=== PATIENT | male | born 1985 | race Caucasian/White ===

== ENCOUNTER 2023-09-09 11:43 | Emergency (ER) | payer OTHER, SELFPAY ==
[2023-09-09 11:59] VITALS: BP 127/87; PULSE 93; RESP 16; TEMP 36.8; O2SAT 98
--- NOTE | 2023-09-09 13:08 | ED.EAR ---
HPI - Ear Problem General Chief complaint: Ear Stated complaint: Ears Irritation Time Seen by Provider: 09/09/23 13:08 Source: patient Mode of arrival: ambulatory Limitations: no limitations History of Present Illness HPI Narrative: 37-year-old male presents with complaint of nasal congestion or postnasal drainage, coughing, sore throat, bilateral ear pain for 5 days. Pain to left ear worse. Not taking any ulaf-qhe-hftbgny medications to treat his symptoms. Afebrile. All Systems reviewed and negative except as noted above. 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 reports fatigue. EYES: Denies visual changes, redness, or discharge. ENT: Reports rhinorrhea, congestion, sore throat, bilateral otalgia. CARDIOVASCULAR: Denies chest pain, palpitations, or edema. RESPIRATORY: reports cough. Denies dyspnea. GASTROINTESTINAL: Denies abdominal pain, nausea, vomiting, or diarrhea. GENITOURINARY: Denies dysuria or hematuria. SKIN: Denies rash or itching. MUSCULOSKELETAL: Denies back pain, joint pain, or myalgia. NEUROLOGIC: Denies headache, numbness, or weakness. PSYCHIATRIC: Denies anxiety or depression. All other systems reviewed are negative, except as documented in HPI. PMFSH Comments At time of signature, agree with nursing past medical, surgical, social and family history. There is no relevant family history pertinent to the presenting complaint. Exam Narrative: GENERAL: This is a well-nourished, well-developed patient, in no apparent distress. HEAD: normocephalic, atraumatic. EYES: PERRL. Sclera clear/white. Vision is grossly intact. EARS: External ears normal, auditory canals clear and without drainage, left TM erythematous and retracted. fluid to right TM without perforation bilaterally. Hearing grossly intact. NOSE: External nose normal with mild congestion, erythema and swelling to bilateral nares. THROAT: Mucous membranes moist, Erythema postnasal drainage NECK: Neck supple, non-tender without lymphadenopathy, masses or thyromegaly. CARDIOVASCULAR: Regular rate and rhythm without murmurs, gallops, or rubs. RESPIRATORY: Clear to auscultation. Breath sounds equal bilaterally. No wheezes, rales, or rhonchi. SKIN: warm, Dry, intact with no suspicious lesions or rash, good texture and turgor. NEURO: awake, alert, and oriented to person, place and time. There were no obvious focal neurologic abnormalities. EXTREMITIES: No joint tenderness, effusion, or edema noted. Course Course Level of Care: Express Care Visit Vital Signs Vital signs: Vital Signs Temperature 36.8 C 09/09/23 11:59 Pulse Rate 93 09/09/23 11:59 Respiratory Rate 16 09/09/23 11:59 Blood Pressure 127/87 09/09/23 11:59 Pulse Oximetry 98 09/09/23 11:59 Oxygen Delivery Room Air 09/09/23 11:59 Temperature 36.8 C 09/09/23 11:59 Pulse Rate 93 09/09/23 11:59 Respiratory Rate 16 09/09/23 11:59 Blood Pressure 127/87 09/09/23 11:59 Pulse Oximetry 98 09/09/23 11:59 Oxygen Delivery Room Air 09/09/23 11:59 reviewed Medical Decision Making MDM Narrative Medical decision making narrative: Patient is aware of diagnosis, understands and agrees to treatment plan. Anticipatory guidance given. Patient agrees to follow-up as directed and is aware of reasons to seek care at the emergency department. Portions of this record may have been created with voice recognition software Vital Signs Vital Signs: Vital Signs Temperature 36.8 C 09/09/23 11:59 Pulse Rate 93 09/09/23 11:59 Respirat
== END 2023-09-09 13:20 | disposition home or self-care (01) ==
PROVIDERS: Emergency Provider Nurse Practitioner Family
DX: J01.90 Acute sinusitis, unspecified (principal); H66.92 Otitis media, unspecified, left ear; H65.01 Acute serous otitis media, right ear
CPT/HCPCS: 99203; G0463

== ENCOUNTER 2024-08-20 18:49 | Inpatient (IN) | payer OTHER, SELFPAY ==
[2024-08-20] VITALS (8 sets, daily range): BP systolic 110–135; BP diastolic 77–99; PULSE 92–112; RESP 13–17; TEMP 36.4–36.8; O2SAT 96–100
--- NOTE | ~2024-08-20 | CT_ITS ---
History: Seizure-like activity PROCEDURE: CT head without contrast. COMPARISON: None TECHNIQUE: Axial imaging of the head performed from the skull base to the vertex without IV contrast. Sagittal a nd coronal reformations obtained. DLP: 605 mGy-cm FINDINGS: The ventricles are normal in size, shape and position. There is no mass, mass effect or midline shift. There is no abnormal extra-axial fluid collection or intracranial hemorrhage. Air-fluid level within the right maxillary sinus. Remaining paranasal sinuses are clear. The mastoid air cells are well aerated. No acute displaced fractures within the overlying cranium. Impression: No acute intracranial hemorrhage or suspicious mass effect. Inflammatory sinus disease Reviewed, dictated and finalized at location A. Impression: No acute intracranial hemorrhage or suspicious mass effect. Inflammatory sinus disease
--- NOTE | ~2024-08-20 | CT_ITS ---
EXAMINATION: CTA abdomen pelvis DATE: 08/20/2024 20:35 CDT INDICATION: TECHNIQUE: Computed tomographic angiography (CTA) of the abdomen and pelvis with 100 mL Omnipaque-350 intravenous contrast. The dose-length product was 527.77 mGy-cm. Maximum intensity projection 3D-rec onstructions of the aorta and other arteries were constructed by the technologist on a separate works tation. FINDINGS/OBSERVATIONS: LOWER CHEST: The bilateral lung bases are clear. Small hiatal hernia is noted. LIVER: The liver enhances homogeneously and is enlarged measuring 20 cm in longitudinal dimension. GALLBLADDER AND BILIARY SYSTEM: The gallbladder is only minimally distended, and otherwise unremarkable. PANCREAS: The pancreas enhances homogeneously without ductal dilatation. SPLEEN: The spleen enhances homogeneously and is not enlarged. KIDNEYS: The bilateral kidneys enhance symmetrically without hydronephrosis or renal calculi. ADRENAL GLANDS: Unremarkable. GASTROINTESTINAL TRACT: Colonic diverticulosis without surrounding inflammatory change. APPENDIX: The air-filled appendix is of normal caliber (axial series, images 121 through 141). VASCULATURE: Unremarkable. No aneurysmal dilatation or significant stenosis. LYMPH NODES: No pathologically enlarged or morphologically suspicious lymph nodes within the retroperitoneum or at the root of the mesentery. PELVIC STRUCTURES: The bladder is only minimally distended, and otherwise unremarkable. The prostate gland is not enlarged. BODY WALL AND MUSCULOSKELETAL: No significant degenerative disease within the lower thoracic or lumbosacral spine. IMPRESSION: Hepatomegaly. Otherwise, unremarkable CTA examination of the abdomen and pelvis, as detailed above. Reviewed, dictated and finalized at location A.
--- OUTSIDE RECORDS SUMMARY | 2024-08-20 18:52 | XMS_ITS | Encounter Summary ---
Author Organization [facility] Address [address] [place] [address] Care Team Providers Care Service Manager Name Role Phone Unavailable Primary Care Provider Unavailabl e Encounter Details Date Type Department Care Team (Late st Contact Info) Description 10/29/1999 Outpatient Historical [facility] Pediatrics [address] [place] [id number] Ashkan Soria Social History Tobacco Use Types Packs/Day Years Used Date Smoking Tobacco: Never Assessed Sex and Gender Information Value Date Recorded Sex Assigned at Not on file Legal Sex Male 3:41 AM [employer]ER[employer] Gender Identity Not on file Sexual Orientation Not on file documented as of this encounter Plan of Treatment Not on file documented as of this encounter Visit Diagnoses Not on filedocumented in this encounter
--- OUTSIDE RECORDS SUMMARY | 2024-08-20 18:52 | XMS_ITS | Clinical Summary ---
Author Organization [facility] Address [address] [place] [address] Care Team Providers Care Blueprint Reader Name Role Phone Unavailable Primary Care Provider Unavailabl e Allergies Active Allergy Reactions Criticality Noted Date Comments Bee Venom Protein (Honey Bee) Anaphylaxis High 08/15 Medications EPINEPHrine (EPIPEN) 0.3 mg/0.3 mL Auto-Injector Inject 0.3 mg by intramuscular injection 1 time daily as needed for Anaphylaxis. Active Encounters Date Type Department Care Team Description 08/15/2024 9:14 AM CDT - 08/15/2024 11:15 AM CDT Emergency [facility] Emergency Department [address] [place] [address] Braulio Mckeon DO Allergic reaction, initial encounter (Primary Dx) Discharge Disposition: Home or Self Care 08/15/2024 Travel 08/01/2024 External Device Data [facility] ABSTRACTION Provider, Abstract 08/01/2024 External Device Data [facility] ABSTRACTION Provider, Abstract 07/31/2024 External Device Data [facility] ABSTRACTION Provider, Abstract 07/28/2024 8:15 AM CDT Ancillary Procedure [facility] [address] [place] [address] Annia Griffin, SALLY Dorsalgia, unspecified from Last 3 Months Social History Tobacco Use Types Packs/Day Years Used Date Smoking Tobacco: Some Days Cigarettes Smokeless Tobacco: Never Tobacco Cessation:Ready to Q uit: Not Asked; Counseling Given: Not Answered Alcohol Use Standard Drinks/Week Comments Yes 0 (1 standard drink = 0.6 oz pur e alcohol) Social Feeling Safe Answer Date Recorded Are you in a relationship wi th someone who hurts you emotionally and/or physically? No 08/15/2024 Sex and Gender Information Value Date Recorded Sex Assigned at Not on file Legal Sex Male 3:41 AM [employer] Gender Identity Not on file Sexual Orientation Not on file Last Filed Vital Signs Vital Sign Reading Time Taken Comments Blood Pressure 132/75 08/15/2024 10:20 AM CDT Pulse 72 08/15/2024 10:20 AM CDT Temperature 36.5 C (97.7 F) 08/15/2024 9:11 AM CDT Respiratory Rate 14 08/15/2024 10:20 AM CDT Oxygen Saturation 98% 08/15/2024 10:20 AM CDT Inhaled Oxygen Concentration - - Weight 73.5 kg (162 lb) 08/15/2024 9:45 AM CDT Height 167.6 cm (5' 6 ) 08/15/2024 9:45 AM CDT Body Mass Index 26.15 08/15/2024 9:45 AM CDT Plan of Treatment Health Maintenance Due Date Last Done Comments Pre-Diabetes and Diabetes Screening 1984 DTAP/TDAP/TD VACCINES (1 - Tdap) 09/26/2003 HEPATITIS B VACCINES (1 of 3 - 19+ 3-dose series) 09/26/2003 INFLUENZA VACCINE (#1) 2023 HPV VACCINES Aged Out No longer eligi ble based on patient's age to complete this topic Procedures Procedure Name Priority Date/Time Associated Diagnosis Comments MRI LUMBAR WO CONTRAST Routine 07/28/2024 8:54 AM CDT Dorsalgia, unspecified from Last 3 Months Results * MRI LUMBAR WO CONTRAST (07/28/2024 8:54 AM CDT) Anatomical Region Laterality Modality Spine Magnetic Resonan ce 07/28/2024 8:54 AM CDT Impressions 07/28/2024 9:13 AM CDT IMPRESSION: There are significant abnormalities with regard to the lumbar spine. The levels of greatest abnormality are L2/3 and L4/5. Please see body of report for complete detail with regard to the significant abnormalities. Narrative 07/28/2024 9:13 AM CDT EXAM: MRI LUMBAR WO CONTRAST DATE: 07/28/2024 8:59 AM HISTORY: Dorsalgia, unspecified TECHNIQUE: Multiplanar, multisequencing images of the lumbar spine were performed without contrast. COMPARISON: None. FINDINGS: There is no marrow edema. The abdominal aorta is normal in caliber. The distal cord terminates at L1. L1/2: Unremarkable. L2/3: This is a level of pertinent abnormality. At this level, there is mild broad-based disc bulging but there is also a midline disc extrusion. Migrating superiorly from the disc level behind the right paracentral L2 vertebral body, there is a large low T2 weighted signal masslike area which is most consistent either with extruded disc material or sequestered disc material. This abnormality measures 1.4 x 0.8 cm in greatest dimension. This abnormality generates severe mass effect upon the right L2 nerve root and upon the right lateral thecal sac. At the disc level, there is moderate central stenosis. At the disc level, the neural foramen are patent. L3/4: Mild bilateral facet arthropathy is present with mild ligamentum flavum hypertrophy and mild broad-based disc bulging. There is no central stenosis. There is mild bilateral foraminal narrowing, left more than right. L4/5: Moderate bilateral facet arthropathy and ligamentum flavum hypertrophy is present. There is moderate circumferential disc bulging but there is also a midline to right paracentral disc protrusion which impresses upon the midline to right paracentral ventral thecal sac in the region of the right L5 nerve root as it prepares to arise from the thecal sac. There is also mild mass effect upon the budding left L5 nerve root secondary to facet arthropathy and circumferential disc bulging. There is overall mild central stenosis as well. Disc bulging mildly narrows the left and moderately narrows the right foramen. L5/S1: Mild bilateral facet arthropathy and mild broad-based disc bulging is present without central stenosis, lateral recess narrowing or foraminal stenosis. Procedure Note Cristal Woods MD - 07/28/2024 EXAM: MRI LUMBAR WO CONTRAST DATE: 07/28/2024 8:59 AM HISTORY: Dorsalgia, unspecified TECHNIQUE: Multiplanar, multisequencing images of the lumbar spine were performed without contrast. COMPARISON: None. FINDINGS: There is no marrow edema. The abdominal aorta is normal in caliber. The distal cord terminates at L1. L1/2: Unremarkable. L2/3: This is a level of pertinent abnormality. At this level, there is mild broad-based disc bulging but there is also a midline disc extrusion. Migrating superiorly from the disc level behind the right paracentral L2 vertebral body, there is a large low T2 weighted signal masslike area which is most consistent either with extruded disc material or sequestered disc material. This abnormality measures 1.4 x 0.8 cm in greatest dimension. This abnormality generates severe mass effect upon the right L2 nerve root and upon the right lateral thecal sac. At the disc level, there is moderate central stenosis. At the disc level, the neural foramen are patent. L3/4: Mild bilateral facet arthropathy is present with mild ligamentum flavum hypertrophy and mild broad-based disc bulging. There is no central stenosis. There is mild bilateral foraminal narrowing, left more than right. L4/5: Moderate bilateral facet arthropathy and ligamentum flavum hypertrophy is present. There is moderate circumferential disc bulging but there is also a midline to right paracentral disc protrusion which impresses upon the midline to right paracentral ventral thecal sac in the region of the right L5 nerve root as it prepares to arise from the thecal sac. There is also mild mass effect upon the budding left L5 nerve root secondary to facet arthropathy and circumferential disc bulging. There is overall mild central stenosis as well. Disc bulging mildly narrows the left and moderately narrows the right foramen. L5/S1: Mild bilateral facet arthropathy and mild broad-based disc bulging is present without central stenosis, lateral recess narrowing or foraminal stenosis. IMPRESSION: There are significant abnormalities with regard to the lumbar spine. The levels of greatest abnormality are L2/3 and L4/5. Please see body of report for complete detail with regard to the significant abnormalities. Annia Griffin [facility] MR ORDERABLES Final Result from Last 3 Months Insurance [facility] [employer] COMP
--- OUTSIDE RECORDS SUMMARY | 2024-08-20 18:52 | XMS_ITS | Encounter Summary ---
Author Organization [facility] Address [address] [place] [address] Care Team Providers Care Social Work Assistant Name Role Phone Unavailable Primary Care Provider Unavailabl e Encounter Details Date Type Department Care Team (Late st Contact Info) Description 01/22/2000 Outpatient Historical [facility] Pediatrics [address] [place] [address] Curly Lind MD [address] [facility] [address] [place] [address] Social History Tobacco Use Types Packs/Day Years Used Date Smoking Tobacco: Never Assessed Sex and Gender Information Value Date Recorded Sex Assigned at Not on file 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
--- OUTSIDE RECORDS SUMMARY | 2024-08-20 18:52 | XMS_ITS | Data Portability ---
Author Organization [facility], Main Office Address [address] [place] [address] Assessment Encounter Date Assessment Date Assessment LastModified by Organization Details LastModified Time 01/25/2024 01/25/2024 38-year-old patient presents today with right elbow pain that has been going on for 20 years but has recently gotten worse last month. He states that W the pain is typically off and on, but it has been constant for the last few weeks. He denies any injury. 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 He is right-handed. For treatment he has tried diclofenac gel, which helps, Advil as needed, which does not help. He states that he can not fully extend or flex the elbow, this has been going on for a long time. Review of systems per patient questionnaire Imaging: X-rays reviewed of the right elbow show no acute bony abnormality or fracture. He does have moderate degenerative osteoarthritic changes and joint space narrowing within the joint. physical exam: Pain with palpitation around medial and lateral epicondyle. Pain with resisted wrist extension. Range of motion of motion 20-120. No issues with supination/pronat ion. Sensation intact. We will order physical therapy to work on his range of motion, limited by arthritis. It is likely that he is also experiencing lateral and medial epicondylitis. We will order meloxicam for anti-inflammatory therapy. He can continue to use diclofenac gel as needed. We will see him back after therapy if he is still experiencing issues. [email or web address] Not available 01/25/2024 16:25:00 Plan of Treatment Reminders Order Date Submit Date Provider Last Modified By Organization Details Last Modified Time Details Appointments None recorded. Lab None recorded. Referral physical therapist referral - patient to schedule 2023 024 [email or web address] Not available 16:25:00 Procedures None recorded. Surgeries None recorded. Imaging XR, elbow 2023 024 [email or web address] [facility], [address], [place], [address], 16:25:00 Medication Orders Mobic 15 mg tablet 2023 024 [email or web address] [facility], [address] [facility], [place], [place], [phone], 16:25:00 Patient TargetsNo targets recorded. Patient InstructionsNo instructions recorded. Reason for Referral Physical Therapist Referral for Pain of right elbow joint patient to schedule Referring Physician: Elinor Medrano, Orthopedic Surgery, Encounter Date: 01/25/2024 Results Created Date Observation Date Name Description Value Unit Range Abnormal Flag Note LastModifiedBy Organization Detail LastModifiedTime 01/25/20 24 XR, elbow No observ ation record ed. [email or web address] [facility] [address], [address], 01/25/2024 16:14:04 Result Notes None recorded. Problems Name Problem SNOMED Code Status Onset Date Resolution Date Notes Provider Name and Address Organization Details Recorded Time Pain of right elbow joint [id number] Active 2023 ABDI Beaver [employer] 15:08:24 Problem Notes None recorded. Procedures Surgical History Date Name Laterality Status Provider Name and Address Organization Details Recorded Time open reduction of fracture of femur completed Phyllis Christopher CNA [employer] 01/25/2024 15:07:55 Imaging Results Imaging Date Name Status LastModified by Organiz ation Details LastModified Time 01/25/2024 XR, elbow completed [email or web address] [facility] [address], [address], 01/25/2024 16:14:04 Procedure Notes None recorded. Medical Equipment None Reported. Allergies No known drug allergies Medications Name Sig Start Date Stop Date Status Note LastModified by Organization Details LastModified Time benzonatate 200 mg capsule TAKE 1 CAPSULE BY MOUTH THREE TIMES DAILY NEEDED FOR COUGH 01/24 completed Not Available Not Available Not Available hydrocodone 5 mg-acetamino phen 325 mg tablet TAKE ONE TABLET BY MOUTH EVERY 4 TO 6 HOURS NEEDED FOR PAIN 01/24 completed Not Available Not Available Not Available sucralfate 100 mg/mL oral suspension 01/24 completed Not Available Not Available Not Available meloxicam 15 mg tablet Take 1 tablet every day by oral route. active Not Available Not Available No t Available famotidine 40 mg tablet 01/24 completed Not Available Not Available Not Available prednisone 20 mg tablet TAKE 2 TABLETS BY MOUTH DAILY FOR 5 DAYS 01/24 completed Not Available Not Available Not Available amoxicillin 875 mg tablet TAKE 1 TABLET BY MOUTH EVERY 12 HOURS FOR 10 DAYS 01/24 completed Not Available Not Available Not Available epinephrine 0.3 mg/0.3 mL injection, auto-injecto r 01/24 completed Not Available Not Available Not Available ibuprofen 600 mg tablet active Not Available Not Available Not Available fluticasone propionate 50 mcg/actuatio n nasal spray,suspen mark 01/24 completed Not Available Not Available Not Available diclofenac 1 % topical gel active Not Available Not Available Not Available Vitals Date Recorded Body height Body mass index (BMI) Body weight Provider Name and Address Organization Details Last Updated DateTime 01/25/2024 170.18 cm 25.1 kg/m2 46529.78 g Phyllis Christopher CNA [place] [employer] 01/25/2024 15:04:56 Social History Question Answer Notes LastModified by Organizat ion Details LastModified Time Tobacco Smoking Status Current Every Day Smoker ABDI Beaver [facility] [employer] [facility] 01/25/2024 15:07:34 What Is Your Level Of Alcohol Consumption? Moderate Information not available 01/25/2024 How Much Tobacco Do You Smoke? 1 PPW Information not available 01/25/2024 How Many Years Have You Smoked Tobacco? 20 Information not available 01/25/2024 Sex: Unknown Functional Status None recorded. Mental Status None recorded. Family History Nothing Reported. Medical History No medical history recorded. Past Encounters Encounter ID Performer Location Encounter Start Date Encounter Closed Date Diagnosis/Indication Diagnosis SNOMED-CT Code Diagnosis ICD10 Code Diagnosis Note [id number] Elinor Medrano NP [facility] [address] [place] [address] 01/25/2024 14:44:54 01/25/2024 15:44:20 Pain of right elbow joint [id number] M25.521 Health Concerns Section Related Observation LastModified by Organization Detai ls LastModified Time None Recorded Concern Status LastModified by Organization Details LastModified Time None Recorded Advance Directives Directive None Recorded Payers Encounter Date Sequence Insurance Name Policy Number Policy Martínez Covered Member ID Martínez Member ID Guarantor Name 01/25/2024 1 [facility] [id number] Lui Latham [id number] Lui Latham
--- OUTSIDE RECORDS SUMMARY | 2024-08-20 18:52 | XMS_ITS | Data Portability ---
Author Organization [place] - [facility], Heena Holt Address [address] [place] [address] Assessment Encounter Date Assessment Date Assessment LastModified by Organization Details LastModified Time 07/19/2024 07/19/2024 Patient tolerate d treatment today but was sore around his neck and lower back Treatment Plan: It is recommended that the patient receive pet care technician _2_ times per week for _4_ weeks receiving pet care technician, MH, STIM. May utilize DECOMP if symptoms don't respond. Will graduate to IST as able The patient will benefit from pet care technician and supporting therapies to conservatively manage pain and help facilitate a return to max functional capability. The patient's progress is dependent on patient compliance regarding home therapies and following the recommended treatment plan. Prognosis: good Co-Treatment: PT; patient scheduled on his own to treat left arm neuralgia Imaging: TBD Contraindications : None Patient Treatment Preference: N/A Visit Count: 07/23 [email or web address] Not available 07/19/2024 14:22:51 07/26/2024 07/26/2024 Patient tolerate d treatment today but was sore around his neck and lower back Treatment Plan: It is recommended that the patient receive pet care technician _2_ times per week for _4_ weeks receiving pet care technician, MH, STIM. May utilize DECOMP if symptoms don't respond. Will graduate to IST as able The patient will benefit from pet care technician and supporting therapies to conservatively manage pain and help facilitate a return to max functional capability. The patient's progress is dependent on patient compliance regarding home therapies and following the recommended treatment plan. Prognosis: good Co-Treatment: PT; patient scheduled on his own to treat left arm neuralgia Imaging: TBD Contraindications : None Patient Treatment Preference: N/A Visit Count: [email or web address] Not available 07/26/2024 15:00:33 08/01/2024 08/01/2024 Patient tolerate d treatment today but was sore around his neck and lower back Treatment Plan: It is recommended that the patient receive pet care technician _2_ times per week for _4_ weeks receiving pet care technician, MH, STIM, MT, DECOMPRESSION LUMBAR The patient will benefit from pet care technician and supporting therapies to conservatively manage pain and help facilitate a return to max functional capability. The patient's progress is dependent on patient compliance regarding home therapies and following the recommended treatment plan. Prognosis: good Co-Treatment: SEEING ORTHO FOR LUMBAR PAIN Imaging: TBD Contraindications : None Patient Treatment Preference: N/A Visit Count: 0 [email or web address] Not available 08/01/2024 17:18:55 08/06/2024 08/06/2024 Patient tolerate d treatment today but was sore around his neck and lower back Treatment Plan: It is recommended that the patient receive pet care technician _2_ times per week for _4_ weeks receiving pet care technician, MH, STIM, MT, DECOMPRESSION LUMBAR The patient will benefit from pet care technician and supporting therapies to conservatively manage pain and help facilitate a return to max functional capability. The patient's progress is dependent on patient compliance regarding home therapies and following the recommended treatment plan. Prognosis: good Co-Treatment: SEEING ORTHO FOR LUMBAR PAIN Imaging: TBD Contraindications : None Patient Treatment Preference: N/A Visit Count: 05/25 [email or web address] Not available 08/06/2024 12:17:45 Plan of Treatment Reminders Order Date Submit Date Provider Last Modified By Organization Details Last Modified Time Details Appointments None recorded. Lab None recorded. Referral None recorded. Procedures None recorded. Surgeries None recorded. Imaging MRI, lumbar spine, w/o contrast - Acute on chronic back pain with radiation into right groin, mild saddle anesthesia, numbness of RLE 2024 025 [id number], [address], [place], [address], 07:12:01 Medication Orders ketorolac 30 mg/mL (1 mL) injection solution 2024 025 Not available 13:54:17 naproxen 500 mg tablet [address], [address] [place] [address], [address], 13:54:17 cyclobenzap rine 5 mg tablet [address], [address] [place] [address], [address], 13:54:17 lidocaine 5 % topical patch [address], [address] [place] [address], [address], 13:54:17 Patient TargetsNo targets recorded. Patient Instructions Encounter Date Encounter Id Patient Instructions Last Modified By Organization Details Last Modified Time 07/19/2024 [id number] @HOME HEAT SIDE TO SIDE KNEE ROTATION SUPINE KNEES TO CHEST SUPINE GLUTE STRETCH QL STRETCH HAMSTRING STRETCH [email or web address] Not available 07/19/2024 13:29:14 07/26/2024 [id number] @HOME HEAT SIDE TO SIDE KNEE ROTATION SUPINE KNEES TO CHEST SUPINE GLUTE STRETCH QL STRETCH HAMSTRING STRETCH [email or web address] Not available 07/26/2024 15:00:33 08/01/2024 [id number] @HOME HEAT SIDE TO SIDE KNEE ROTATION SUPINE KNEES TO CHEST SUPINE GLUTE STRETCH QL STRETCH HAMSTRING STRETCH [email or web address] Not available 08/01/2024 15:43:12 08/06/2024 [id number] @HOME HEAT SIDE TO SIDE KNEE ROTATION SUPINE KNEES TO CHEST SUPINE GLUTE STRETCH QL STRETCH HAMSTRING STRETCH [email or web address] Not available 08/06/2024 11:37:56 Reason for Referral None Reported. Results Created Date Observation Date Name Description Value Unit Range Abnormal Flag Note LastModifiedBy Organization Detail LastModifiedTime 07/29/1907/28/2024 MRI, lumba r spine , w/o contr ast No observ ation record ed. [email or web address] [facility] [address] [place], [address], 07/29/2024 13:40:15 Result Notes None recorded. Problems Name Problem SNOMED Code Status Onset Date Resolution Date Notes Provider Name and Address Organization Details Recorded Time Gastroeso phageal reflux disease 761878360 Active 2022 EGD done 2017, ? eosinophi lic esophagit is Annia Griffin NP [address], [place], [address], [place] [facility] 4 10:27:38 Allergic rhinitis 98355740 Active 2022 Annia Griffin NP [address], [place], [address], [place] [facility] 4 10:26:44 Leg length inequalit y 05379558 Active 2022 Annia Griffin NP [address], [place], [address], [place] [facility] 4 10:26:51 Tobacco user 453000137 Active 2021 0.25-0.5p pd x 20 years Annia Griffin NP [address], [place], [address], [place] [facility] 4 10:28:11 Allergic reaction to bee sting 423431739 Active 2023 Annia Griffin NP [address], [place], [address], [place] [facility] 4 10:26:35 Neck pain 24513744 Active 2024 Shun Gunn DC [address], [place], [address], [place] [facility] 5 16:01:17 Acute low back pain 905613228 Active 2024 Shun Gunn DC [address], [place], [address], [place] [facility] 5 16:01:22 Low back pain 183857547 Active 2024 Shun Gunn DC [address], [place], [address], [place] [facility] 5 16:01:22 Low back pain co-occurr ent with neuralgia of left sciatic nerve 843375153257 01700 Active 2024 Shun Gunn DC [address], [place], [address], [place] [facility] 5 16:29:24 Cervical radiculit is 93229114 Active 2024 Shun Gunn DC [address], [place], [address], [place] [facility] 5 16:29:51 Thoracic segmental dysfuncti on 315304052 Active 2024 Shun Gunn DC [address], [place], [address], [place] [facility] 5 16:30:18 Low back pain co-occurr ent with neuralgia of right sciatic nerve 151452601949 105 Active 2024 Elinor Andujar DC [address], [place], [address], [place] [facility] 5 15:53:49 Radiculop athy due to lumbar intervert ebral disc disorder 511482786246 105 Active 2024 Elinor Andujar DC [address], [place], [address], [place] [facility] 5 17:21:57 Cervical radiculop athy 07387418 Active 2024 Elinor Andujar DC [address], [place], [address], [place] [facility] 5 17:22:41 Problem Notes None recorded. Procedures Surgical History Date Name Laterality Status Provider Name and Address Organization Details Recorded Time 2024 Manual Therapy completed Elinor Andujar DC [address], [place], [address], [place] [facility] 5 12:13:26 2024 91672: Hot or Cold Pack completed Elinor Andujar DC [address], [place], [address], [place] [facility] 5 11:44:21 2024 76191: Electrical Stimulation (unattended) completed Elinor Andujar DC [address], [place], [address], [facility] 5 11:43:20 2024 Decompression completed Elinor Andujar DC [address], [place], [address], [facility] 5 12:12:45 2024 54200: Chiropractic Manipulative Treatment (CMT) Spinal 1-2 regions completed Elinor Andujar DC [address], [place], [address], [facility] 5 11:37:55 2024 50994: Chiropractice Manipulative Treatment (CMT) Extraspinal 1 or more regions completed Elinor Andujar DC [address], [place], [address], [place] [facility] 5 11:37:55 2024 Manual Therapy completed Elinor Andujar, DC [address], [place], [address], [facility] 5 17:17:28 2024 37285: Hot or Cold Pack completed Elinor Andujar DC [address], [place], [address], [facility] 5 17:14:36 2024 03888: Electrical Stimulation (unattended) completed Elinor Andujar DC [address], [place], [address], [place] [facility] 5 17:14:33 2024 Decompression completed Elinor Andujar DC [address], [place], [address], [facility] 5 17:16:04 2024 55162: Chiropractic Manipulative Treatment (CMT) Spinal 1-2 regions completed Elinor Andujar DC [address], [place], [address], [place] [facility] 5 17:16:57 2024 44456: Chiropractice Manipulative Treatment (CMT) Extraspinal 1 or more regions completed Elinor Andujar DC [address], [place], [address], [place] [facility] 5 17:17:41 2024 Manual Therapy completed Margaret Makeever, DC [address], [place], [address], [place] [facility] 5 15:00:32 2024 73655: Hot or Cold Pack completed Margaret Makevivian, DC [address], [place], [address], [place] [facility] 5 15:00:32 2024 00789: Electrical Stimulation (unattended) completed Margaret Makeever, DC [address], [place], [address], [place] [facility] 5 15:00:32 2024 58247: Chiropractic Manipulative Treatment (CMT) Spinal 3-4 regions completed Margaret Makeever, DC [address], [place], [address], [place] [facility] 5 15:00:32 2024 Manual Therapy completed Margaret Makeever, DC [address], [place], [address], [place] [facility] 5 14:22:31 2024 33145: Hot or Cold Pack completed Margaret Makeever, DC [address], [place], [address], [place] [facility] 5 13:29:14 2024 96352: Electrical Stimulation (unattended) completed Margaret Makeever, DC [address], [place], [address], [place] [facility] 5 13:29:14 2024 80193: Chiropractic Manipulative Treatment (CMT) Spinal 3-4 regions completed Margaret Mazariegos DC [address], [place], [address], [place] [facility] 5 14:22:19 2024 Manual Therapy completed Elinor Andujar DC [address], [place], [address], [place] [facility] 5 15:51:48 2024 93814: Hot or Cold Pack completed Elinor Andujar DC [address], [place], [address], [place] [facility] 5 14:02:42 2024 12629: Electrical Stimulation (unattended) completed Elinor Andujar DC [address], [place], [address], [place] [facility] 5 15:51:25 2024 37397: Chiropractic Manipulative Treatment (CMT) Spinal 3-4 regions completed Elinor Andujar DC [address], [place], [address], [place] [facility] 5 14:02:51 2024 71992: Hot or Cold Pack completed Shun Gunn DC [address], [place], [address], [place] [facility] 5 16:24:46 2024 50909: Electrical Stimulation (unattended) completed Shun Gunn DC [address], [place], [address], [place] [facility] 5 16:24:49 2024 65981: Chiropractic Manipulative Treatment (CMT) Spinal 3-4 regions completed Shun Gunn DC [address], [place], [address], [place] [facility] 5 16:25:05 2017 esophagogastroduodenoscopy completed Annia Griffin NP [address], [place], [address], [place] [facility] 4 10:29:19 2009 internal fixation of femur completed Annia Griffin NP [address], [facility] [place], [address], [place] [facility] 4 10:28:39 1984 hernia repair completed Annia Griffin NP [address], [place], [address], [facility] 4 10:29:03 Imaging Results Imaging Date Name Status [facility] Details LastModified Time 07/28/2024 MRI, lumbar spine, w/o contrast completed [email or web address] [facility] [address] [facility], [place], [address], 07/29/2024 13:40:15 Procedure Notes None recorded. Medical Equipment None Reported. Allergies Allergen ID Allergen Name Allergen Category Reaction Reaction Severity Criticality Documentation Date Start Date Code Code System Note Provider Name and Address Organization Details Recorded Time 236806 No Allergy Informati on Available Not available Not available Not available Not available 09/01/2023 34302 UNK Comme nt: React ion Class : Aller gy; Cheyanneflorence abreu, [place] [facility] 4 19:02:54 [id number] bee pollen medicatio n Not available Not available Not available 09/01/2023 03243 7 RxNorm Cheyanne Askew lois, [facility] 4 19:03:16 Medications Name Sig Start Date Stop Date Status Note LastModified by Organization Details LastModified Time cyclobenz aprine 10 mg tablet 1 tab(s) Oral hs,PRN:a s needed for muscle spasm 12/02 completed PRNInstr uctions: as needed for muscle spasm St opType: Physicia n Stop Petar gIsara icationN umber: [id number] S cheduled PRN: Yes Tota lRefills : 0 Consta ntIndica tor: No CSASc hedule: 0 active _status_ dt_tm: 0 11:29:30 AM Not Available Not Available Not Available cetirizin e 10 mg tablet 1 tab(s) Oral daily 2022 active Not Available Not Available Not Avai lable benzonata te 200 mg capsule TAKE 1 CAPSULE BY MOUTH THREE TIMES DAILY NEEDED FOR COUGH 01/16 completed Not Available Not Available Not Available hydrocodo ne 5 mg-acetam inophen 325 mg tablet TAKE ONE TABLET BY MOUTH EVERY 4 TO 6 HOURS NEEDED FOR PAIN 01/16 completed Not Available Not Available Not Available sucralfat e 100 mg/mL oral suspensio n 06/26 completed Not Available Not Available Not Available meloxicam 15 mg tablet Take 1 tablet every day by oral route as needed, for elbow pain. 06/26 completed Not Available Not Available Not Available famotidin e 40 mg tablet 1 tab(s) Oral twice daily as needed for allergic reaction 06/26 completed Not Available Not Available Not Available prednison e 20 mg tablet TAKE 2 TABLETS BY MOUTH DAILY FOR 5 DAYS 01/25 completed Not Available Not Available Not Available hydrocodo ne 10 mg-acetam inophen 325 mg tablet Take 1 tablet every 4 hours by oral route. 06/26 completed Not Available Not Available Not Available ketorolac 30 mg/mL (1 mL) injection solution Inject 1 mL by intramus cular route. 2024 active Not Available Not Available Not Avai lable amoxicill in 875 mg tablet TAKE 1 TABLET BY MOUTH EVERY 12 HOURS FOR 10 DAYS 01/16 completed Not Available Not Available Not Available prednison e 50 mg tablet 1 tab(s) Oral daily,x5 days 11/03 completed Duration : 5 Durati onUnit: days Sto pType: Physicia n Stop Petar Azra icationN umber: [id number] S cheduled PRN: No Total Refills: 0 Consta ntIndica tor: Yes CSAS chedule: 0 active _status_ dt_tm: 2 4:38:39 PM Not Available Not Available Not Available lidocaine 5 % topical patch APPLY 1 PATCH BY TOPICAL ROUTE ONCE DAILY (MAY WEAR UP TO 12HOURS. ) active Not Available Not Available No t Available epinephri ne 0.3 mg/0.3 mL injection , auto-inje ctor INJECT 0.3 MG INTRAMUS CULARLY ONCE NEEDED FOR ALLERGIC REACTION CAN REPEAT NEEDED 04/03/ 2025 active Not Available Not Available Not Avai lable ibuprofen 600 mg tablet Take 1 tablet 3 times a day by oral route for 10 days. active Not Available Not Available No t Available fluticaso ne propionat e 50 mcg/actua tion nasal spray,giovani pension 2 spray(s) Nasal daily,In str:2 sprays in each nostril daily active Not Available Not Available No t Available naproxen 500 mg tablet Take 1 tablet twice a day by oral route as needed. active Not Available Not Available No t Available Tylenol Extra Strength 500 mg tablet Take 2 tablets 3 times a day by oral route, for pain. 2023 active Not Available Not Available Not Avai lable Benadryl 25 mg capsule Take 1 capsule every 4 hours by oral route. active Not Available Not Available No t Available cyclobenz aprine 5 mg tablet Take 1 tablet 3 times a day by oral route as needed. active Not Available Not Available No t Available Carafate 10 mL Oral qid,x7 days,PRN :as needed for acid reflux/h eartburn 01/25 completed Duration : 7 Durati onUnit: day(s) P RNInstru ctions: as needed for acid reflux/h eartburn StopTyp e: Soft Stop Petar gImichelletif icationN umber: [id number] S cheduled PRN: Yes Tota lRefills : 0 Consta ntIndica tor: No CSASc hedule: 0 active _status_ dt_tm: 3 9:07:35 AM Not Available Not Available Not Available diclofena c 1 % topical gel APPLY 2 GRAMS TO THE AFFECTED AREA(S) BY TOPICAL ROUTE 2- 4 TIMES PER DAY active Not Available Not Available No t Available Adacel (Tdap Adolesn/A dult)(PF) 2 Lf-(2.5-5 -3-5)-5 Lf/0.5 mL IM syringe 10/28 completed StopType : Physicia n Stop Petar gIdentif icationN umber: [id number] N extDoseD ate: 2 1:23:00 PM Const antIndic ator: No CSASc hedule: 0 active _status_ dt_tm: 2 1:26:07 PM Not Available Not Available Not Available lidocaine 5 % topical ointment 1 patch(es ) Topical daily,In str:montez ve patches after 12 hours 12/30 completed StopType : Physicia n Stop Petar Christdentif icationN umber: [id number] S cheduled PRN: No Total Refills: 0 Consta ntIndica tor: Yes CSAS chedule: 0 active _status_ dt_tm: 2 1:26:07 PM Not Available Not Available Not Available Vitals Date Recorded Body height Body mass index (BMI) Body weight Respiratory rate Oxygen saturation Oxygen saturation in Arterial blood by Pulse oximetry Body temperature Heart rate Systolic blood pressure Diastolic blood pressure Provider Name and Address Organization Details Last Updated DateTime 5 166.37 cm 26.9 kg/m2 83192.1 5 g 16 /min 100 % 100 % 98.6 [degF] 84 /min 151 mm[Hg] 106 mm[Hg] Rudolph Soto [place] [facility] 5 13:28:09 Date Recorded Body height Body temperature Body mass index (BMI) Body weight Oxygen saturation Oxygen saturation in Arterial blood by Pulse oximetry Heart rate Systolic blood pressure Diastolic blood pressure Provider Name and Address Organization Details Last Updated DateTime 5 166.37 cm 97.9 [degF] 26.9 kg/m2 29516.1 5 g 97 % 97 % 85 /min 141 mm[Hg] 94 mm[Hg] Maritza Armstrong [place] [facility] 5 15:12:48 Social History Question Answer Notes LastModified by Organizat ion Details LastModified Time Tobacco Smoking Status Current Some Day Smoker social Jasmin abreu [place] [facility] 01/17/2024 10:53:38 What Is Your Level Of Alcohol Consumption? Occasional [email or web address] Information not available 02/07/2024 What Is Your Level Of Caffeine Consumption? Heavy [email or web address] Information not available 02/07/2024 How Much Tobacco Do You Chew? None [email or web address] Information not available 02/07/2024 In The 14 Days Before Symptom Onset, Have You Had Close Contact With A Laboratory-confi rmed COVID-19 While That Case Was Ill? No [email or web address] Information not available 01/17/2024 In The 14 Days Before Symptom Onset, Have You Had Close Contact With A Person Who Is Under Investigation For COVID-19 While That Person Was Ill? No [email or web address] Information not available 01/17/2024 Have You Been To An Area Known To Be High Risk For COVID-19? No [email or web address] Information not available 01/17/2024 What Is The Highest Grade Or Level Of School You Have Completed Or The Highest Degree You Have Received? JD28754-3 [email or web address] Information not available 02/07/2024 What Is Your Occupation? [employer] [email or web address] Information not available 02/07/2024 Cigar Smoking Yes [email or web address] Informa tion not available 02/07/2024 Does Anyone Insult Or Talk Down To You? Never [email or web address] Information not available 02/07/2024 Does Anyone Physically Hurt You At Home? Never [email or web address] Information not available 02/07/2024 Does Anyone Scream Or Curse At You? Never [email or web address] Information not available 02/07/2024 Does Anyone Threaten/bully You With Harm? Never [email or web address] Information not available 02/07/2024 Sleep Habits Occasionally Don?t Sleep Through The Night [email or web address] Information not available 02/07/2024 Have You Ever Served In The ? No [email or web address] Information not available 02/07/2024 What Was The Date Of Your Most Recent Tobacco Screening? 01/26/2024 [email or web address] Information not available 02/07/2024 What Is Your Relationship Status? Domestic Partner [email or web address] Information not available 02/07/2024 Do You Or Have You Ever Used Smokeless Tobacco? Never Used Smokeless Tobacco [email or web address] Information not available 02/07/2024 How Much Tobacco Do You Smoke? 1 PPW Not Daily [email or web address] Information not available 01/17/2024 Has Tobacco Cessation Counseling Been Provided? No [email or web address] Information not available 02/07/2024 How Many Years Have You Smoked Tobacco? 20 Information not available 01/17/2024 Do You Or Have You Ever Used Any Other Forms Of Tobacco Or Nicotine? Yes [email or web address] Information not available 02/07/2024 Sex: Unknown Functional Status None recorded. Mental Status None recorded. Family History Relationship Description Onset Age of this Age Resolved Age Notes LastModified by Organization Details LastModified Time Brother Crohn's disease [email or web address] Not available 2023 09:03:26 Sister Addiction Not availabl e 02/07/2024 09:03:26 Sister Anxiety disorder [email or web address] Not available 2023 10:30:20 Mother Anxiety disorder [email or web address] Not available 2023 10:30:20 Maternal Grandmother Anxiety disorder [email or web address] Not available 2023 10:30:20 Medical History No medical history recorded. Immunizations Vaccine Type Date Status Note Provider Nam e and Address Organization Details Recorded Time Tdap 10/28/2021 completed Not Available [facility] 09/01/2023 14:53:45 Past Encounters Encounter ID Performer Location Encounter Start Date Encounter Closed Date Diagnosis/Indication Diagnosis SNOMED-CT Code Diagnosis ICD10 Code Diagnosis Note [id number] [facility] [address] [place] [address] 01/17/2024 10:39:28 01/17/2024 12:03:59 Allergic reaction to bee sting 295936167 T63.444A EpiPen refilled.H ad IV steroid and had some left over prednisode he has taken for a few days.Havin g side effects from steroid so will discontinu e now.Contin ue pepcid/rené adryl as needed until symptoms resolved. Has physical in 2 weeks. Lateral ep icondylitis of right humerus 1280449559 36864 M77.11 Did not get better with weekend of steroids for bee sting. Diclofenac gel 2-3x daily.Home exercises discussed, handout given.Offe red physical therapy but he has done this in the past with no improvemen t.Referral to ortho. [id number] [facility] [address] [place] [address] 01/26/2024 15:46:09 01/26/2024 16:04:47 Epicondylitis 55014894 M77.8 Discussed possible things seen on XRay: osteophyte vs avulsion fx vs calcifcati on of soft tissue.He has scheduled with [facility] and starts on Tuesday.Dic ussed I would send generic meloxicam to [facility] pharmacy and to cancel mobic. Advised no NSAIDs (he thought he was told he could still take aleve.) Tylenol is okay. Take with food.Has follow up in a few weeks. [id number] [facility] [address] [place] [address] 02/07/2024 09:03:18 02/13/2024 16:39:47 Adult health examination 995139978 Z00.00 Briefly discussed healthy diet and regular exercise. Encouraged to be tobacco free. Encouraged to avoid binge drinking or more than 2 drinks per day. Annual eye exam and biannual dental cleanings recommende d. Discussed recommende d vaccines and screenings per HPI. Discussed option to follow up with physician in 2 weeks for new conditions . Epicondylitis [id number] M 77.8 Continue PT.Stopped Mobic. Start ibuprofen 600mg + tylenol 1000mg TID together with food.Follo w up if not improving in 4-6 weeks.XRay done here so PT can review. [id number] MILAGROS Hand [facility] [address] [place] [address] 06/26/2024 15:25:59 06/26/2024 16:41:33 Neck pain [id number] M54.2 Pain and left arm neuralgia. Will treat with chiropract ic as patient also seeks PT. Will refer for imaging if symptoms don't respond. Low back p ain co-occurrent with neuralgia of left sciatic nerve [id number] M54.42 LBP with radiating pain down LEFT leg into calf, without weakness or bladder/penelope wel dysfunctio n; facet irritation with erectors contractur e. Will treat with chiropract ic and refer if symptoms don't respond to care. Cervical radiculitis 110 57892 M54.12 Down LEFT ARM Thoracic s egmental dysfunction [id number] M99.02 Midback restrictio n and muscle tension [id number] MILAGROS Smith s [address] [place] [address] 07/18/2024 13:51:20 07/18/2024 15:55:37 Neck pain 56887708 M54.2 PAIN B/L AND B/L arm neuralgia. Will treat with chiropract ic as patient also seeks PT. Will refer for imaging if symptoms don't respond. Cervical radiculitis 110 28898 M54.12 B/L ARMS-WORSE ON THE L Thoracic s egmental dysfunction [id number] M99.02 Midback restrictio n and muscle tension Low back p ain co-occurrent with neuralgia of right sciatic nerve [id number] 74621 M54.41 LBP with radiating pain down RIGHT leg into calf, without weakness or bladder/penelope wel dysfunctio n; facet irritation with erectors contractur e. Will treat with chiropract ic and refer if symptoms don't respond to care. [id number] CAMPOS Stallworth s [address] [place] [address] 07/18/2024 13:13:41 07/18/2024 14:07:39 Backache [id number] M54.9 Toradol given IM now.NSAIDS : naproxen 500mg BID (take with food) for 3-5 days and then as needed.Con tinue tylenolMus vikash relaxers - discussed R/B/SE.Lid ocaine patches as needed: avoid with ice or heat to prevent thermal jiang.Ligh t activity. Moist heat.Walke d over to chiro for his appt - discussed new symptoms with Dr Kimble ptoms with some right saddle anesthesia so MRI ordered.Di scussed ER precaution s / red flag signs and when to seek higher level of care. [id number] MILAGROS Perez s [address] [place] [address] 07/19/2024 13:18:22 07/19/2024 14:23:16 Neck pain 55649770 M54.2 PAIN B/L AND B/L arm neuralgia. Will treat with chiropract ic as patient also seeks PT. Will refer for imaging if symptoms don't respond. Low back p ain co-occurrent with neuralgia of right sciatic nerve [id number] 61258 M54.41 LBP with radiating pain down RIGHT leg into calf, without weakness or bladder/penelope wel dysfunctio n; facet irritation with erectors contractur e. Will treat with chiropract ic and refer if symptoms don't respond to care. Cervical radiculitis 110 49023 M54.12 B/L ARMS-WORSE ON THE L Thoracic s egmental dysfunction 597891402 M99.02 Midback restrictio n and muscle tension [id number] Margaret Mazariegos DC Mar Lin s [address] [place] [address] 07/26/2024 14:55:12 07/26/2024 15:22:50 Neck pain 32821647 M54.2 PAIN B/L AND B/L arm neuralgia. Will treat with chiropract ic as patient also seeks PT. Will refer for imaging if symptoms don't respond. Low back p ain co-occurrent with neuralgia of right sciatic nerve [id number] 35247 M54.41 LBP with radiating pain down RIGHT leg into calf, without weakness or bladder/penelope wel dysfunctio n; facet irritation with erectors contractur e. Will treat with chiropract ic and refer if symptoms don't respond to care. Cervical radiculitis 110 80386 M54.12 B/L ARMS-WORSE ON THE L Thoracic s egmental dysfunction 111618623 M99.02 Midback restrictio n and muscle tension [id number] MILAGROS Smithenter s [address] [place] [address] 08/01/2024 15:08:58 08/01/2024 17:25:11 Thoracic segmental dysfunction [id number] M99.02 Midback restrictio n and muscle tension Radiculopa thy due to lumbar intervertebral disc disorder [id number] 59374 M51.16 LBP with radiating pain down BOTH LEGS- WORSE ON THE L Cervical radiculopathy 23528696 M54.12 B/L ARM ACHE -TENSION IN UPPER T/S CAUSES SYMPTS TO WORSEN. Will treat with chiropract ic as patient also seeks PT. Will refer for imaging if symptoms don't respond. [id number] MILAGROS S[address]ter s [address] [place] [address] 08/06/2024 11:35:46 08/06/2024 12:19:15 Radiculopathy due to lumbar intervertebral disc disorder [id number] 50284 M51.16 LBP with radiating pain down BOTH LEGS- WORSE ON THE L Thoracic s egmental dysfunction 811075464 M99.02 Midback restrictio n and muscle tension Cervical radiculopathy 43995948 M54.12 B/L ARM ACHE -TENSION IN UPPER T/S CAUSES SYMPTS TO WORSEN. Will treat with chiropract ic as patient also seeks PT. Will refer for imaging if symptoms don't respond. Health Concerns Section Related Observation LastModified by Organization Detai ls LastModified Time None Recorded Concern Status LastModified by Organization Details LastModified Time None Recorded Advance Directives Directive None Recorded Payers Encounter Date Sequence Insurance Name Policy Number Policy Martínez Covered Member ID Martínez Member ID Guarantor Name 07/18/2024 1 [facility] - P [id number] Lui Latham [id number] Lui Latham 07/19/2024 1 [facility] - P [id number] Lui Latham [id number] Lui Latham 07/26/2024 1 [facility] - P [id number] Lui Latham [id number] Lui Latham 08/01/2024 1 [facility] - P [id number] Lui Latham [id number] Lui Latham 08/06/2024 1 [facility] - P [id number] Lui Latham [id number] Lui Latham Notes Date Note Type Note Provider Name and Address Organization Details Recorded Time 07/18/2024 text/html Lower BackReport ed bypatient.Location :bilateral Quality:aching; throbbing; sharp Severity:worst pain 8/10 Duration:2 months Timing:gradual Context:bending; lifting; twisting Alleviating Factors:nothing helps; position change Aggravating Factors:lifting; carrying; twisting Associated Symptoms:tingling; radiation down legNeck PainReported bypatient.Location :bilateral Quality:throbbing; burning; aching Severity:worst pain 8/10 Duration:2 months Timing:chronic; gradual; constant Context:atraumatic Aggravating Factors:cannot identify; ROM; WORK DUTIES Neurological Complaints:numbnes s of the arms;tingling of the arms YESTERDAY WENT TO PICK SOMETHING UP AND FELT LIKE BACK SHATTERED BUT FELT A POP INTENSE PAIN RIGHT AWAY AND STOOD UP /TRIED TO WALK AROUND AND LOSEN IT UP PAIN IS RADIATING INTO GROIN AND LEG ON R SIDE TOOK OTC MEDS AND USED ICED AND PATCHES YESTERDAY DEEP DULL ACHE WITH BURNING- SLIGHT TINGING IN TOES CAME IN HERE TODAY SAW PCP GOT TORADOL SHOT SITTING/STANDING/W ALKING/ADLS ALL PAINFUL NEG VALS - COUGHING DISCOMFORT, HASN'T WENT TO THE BATHROOM YET C/S R SIDED TIGHT AND ACHY DOWN R ARM USUALLY ON L SIDE TOO BUT RIGHT SIDE IS WORSE TODAY L ARM ACHYING CONSTANTLY PT CHIRO AND MASSAGE HELPED IN THE PAST WITH NECK RADIATION COMPLAINT WORK MAKES EVERYTHING WORSE IN GENERAL Elinor Andujar DC [address], [place], [address], [place] [facility] 07/18/2024 15:55:01 07/18/2024 text/html Months of lowbac k pain but yesterday felt a pop in right low back when reaching down for an object. Pain in top/front of right thigh and into groin. Getting some pins and needles sensation in toes since yesterday. Pain now radiating up right back and into neck in the last few hours. Feeling unbalanced. No extremity weakness. No loss of bowel or bladder control. No BM today despite feeling of needing to go. No fevers, chills or sick symptoms. No history of cancer. Using 500mg tylenol as needed for pain and lidocaine patch. Has been seeing chiro for left sciatic pain and back pain. Annia Griffin NP [address], [place], [address], [place] [facility] 07/18/2024 14:05:24 07/19/2024 text/html Neck PainReporte d bypatient.Location :bilateral Quality:throbbing; burning; aching Severity:worst pain 8/10 Duration:2 months Timing:chronic; gradual; constant Context:atraumatic Aggravating Factors:cannot identify; ROM; WORK DUTIES Neurological Complaints:numbnes s of the arms;tingling of the arms Lui reported that his low back pain is much better today. He thinks the cortizone injection yesterday was helpful. His low back pain is still an 8 or 9 today if he bends down but he has no pain if standing still. He is still having neck pain and radiating pain into the arm currently. Margaret Mazariegos DC [address], [place], [address], [facility] 07/19/2024 14:23:10 07/26/2024 text/html Neck PainReporte d bypatient.Location :bilateral Quality:throbbing; burning; aching Severity:worst pain 12/23 Duration:2 months Timing:chronic; gradual; constant Context:atraumatic Aggravating Factors:cannot identify; ROM; WORK DUTIES Neurological Complaints:numbnes s of the arms;tingling of the arms Lui reported that his low back pain is worse today. He had relief until the end of the day after last visit. Today he rates his pain as an 8 or 9 out of 10 on the pain scale. Margaret Mazariegos DC [address], [place], [address], [facility] 07/26/2024 15:22:40 08/01/2024 text/html CURRENTLY ACUTE L L/S ACHE TIGHT AND SHOOTING/ RADIATION DOWN BOTH LEGS- L WORSE-SOMETIMES CENTER ACROSS BOTH SIDES L/SHAS BEEN ABOUT THE SAME SINCE ONSET 07/18/24INJECTION HELPED SLIGHTLY ON 07/18/24TAKING MEDICATION AND HAS TO AROUND THE CLOCK TO STAY OUT OF PAINIF HE DOESNT TAKE THE MEDS IT FLARES UP TOO BAD WHERE HE CANT MOVEABLE TO WORK THROUGH IT BUT HAS HAD THESE SYMPT FOR A LONG TIME SO JUST USE TO THE PAIN COUGHING CAUSING HIM TO BUCKLE HIS KNEES - INTENSE PAIN TUESDAY APT WITH ORTHO FOR CONSULT ACUTE R C/S KNOT BEHIND SHOULD BLADE FEELS LIKE ITS CAUSING ACHING DOWN R ARMTIGHT C/S AND T/SCHRONIC ONGOINGNO HEADACHES1.5 WEEKS SINCE ONSET NO BIG CHANGES FROM LAST REEVAL ONE MONTH AGO BESIDES FLARE UP OF L/S Elinor Andujar DC [address], [place], [address], [facility] 08/01/2024 17:23:58 08/06/2024 text/html ACUTE B/L L/S AC HE TIGHT AND SHOOTING/ RADIATION DOWN BOTH LEGS- NOT ONE SIDE IS WORSEFEELING A LITTLE BETTER SLPV SAW ORTHO AND IS SUPPOSE TO GET 3 EPIDURAL INJECTIONS- ONE EVERY 10 DAYSTAKING MEDICATION AND HAS TO AROUND THE CLOCK TO STAY OUT OF PAINCOUGHING CAUSING HIM TO BUCKLE HIS KNEES - INTENSE PAIN ACUTE R C/S KNOT BEHIND SHOULDER BLADE FEELS LIKE ITS CAUSING ACHING DOWN R ARM-TIGHT C/S AND T/SCHRONIC ONGOINGNO CHANGE [facility] Elinor Andujar DC [address], [place], [address], [place] - [facility] 08/06/2024 12:19:03
--- NOTE | 2024-08-20 19:07 | ECG_ITS ---
Test Date: 2024-08-20 19:15:39 Measurements Intervals [place] Rate: 94 P: 64 PA: 136 QRS: 63 QRSD: 89 T: 59 QT: 362 QTc: 454 Interpretive Statements SINUS RHYTHM MINIMAL Q WAVES- INF/LAT LEADS BORDERLINE ECG No previous ECG available for comparison Electronically Signed On 08-20-2024 19:32:24 CDT by Arie Chung D.O.
[2024-08-20] MEDS: SODIUM CHLORIDE 0.9% IV 1,000 ML 999 ML IV CONT ×2 (19:11→19:51)
[2024-08-20] MEDS: ONDANSETRON INJ 4 MG/2 ML VIAL IV PUSH (19:12)
[2024-08-20] MEDS: PHENobarbitaL sodium (*CRX) 130 MG/ML VIAL IV PUSH (19:12)
[2024-08-20] MEDS: PANTOPRAZOLE SODIUM IV 40 MG VIAL 80 MG IV PUSH (19:13)
[2024-08-20 19:15] LABS: Basophils Percent Auto 0.2 % (0.2-1.2); Eosinophils Absolute Auto 0.3 K/mm3 (0-0.3); Eosinophils Percent Auto 2.6 % (0-4.4); Hematocrit 35.2 % (42.0-52.0); Hemoglobin 11.4 g/dL (14.0-18.0); Immature Granulocyte Absolute 0.08 K/mm3 (0.00-0.031); Immature Granulocyte Percent A 0.6 % (0-0.5); Lymphocytes Absolute Auto 2.58 K/mm3 (0.9-3.2); Lymphocytes Percent Auto 20.7 % (18.3-44.2); Mean Corpuscular HGB Conc 32.4 g/dl (32-36); Mean Corpuscular Hemoglobin 30.4 pg (26-34); Mean Corpuscular Volume 93.9 fl (80-100); Mean Platelet Volume 10.5 fl (7.4-10.4); Monocytes Percent Auto 7.8 % (2.6-8.5); Neutrophils Absolute Auto 8.5 K/mm3 (1.3-6.7); Neutrophils Percent Auto 68.1 % (45.5-73.1); Platelet Count Result 308 k/mm3 (150-375); Red Blood Count 3.75 M/mm3 (4.6-6.20); Red Cell Distribution Width 12.4 % (11.5-14.5); White Blood Count 12.5 K/mm3 (4.5-10.0)
[2024-08-20 19:27] LABS: Alanine Aminotransferase 50 U/L (6-50); Albumin Level 4.1 g/dL (3.5-5.1); Alkaline Phosphatase 56 U/L (38-126); Anion Gap 15 mmol/L (4-12); Aspartate Amino Transferase 30 U/L (17-59); Bilirubin,Total 0.8 mg/dL (0.2-1.3); Blood Urea Nitrogen 37 mg/dL (9-20); Calcium 8.9 mg/dL (8.4-10.2); Carbon Dioxide 16 mmol/L (22-30); Chloride 102 mmol/L (98-107); Estimated Glomerular Filt Rate > 60; Glucose 228 mg/dL (65-110); Potassium 3.8 mmol/L (3.4-5.0); Sodium 133 mmol/L (137-145)
[2024-08-20 19:31] LABS: Lactic Acid Reflex 4.7 mmol/L (0.7-2.0)
--- OUTSIDE RECORDS SUMMARY | 2024-08-20 19:31 | XMS_ITS | Encounter Summary ---
Author Organization [facility] Address 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
--- OUTSIDE RECORDS SUMMARY | 2024-08-20 19:31 | XMS_ITS | Clinical Summary ---
Author Organization [facility] Address [address] [place] [address] Care Team Providers Care Grounds Maintenance Supervisor Name Role Phone Unavailable Primary Care Provider Unavailabl e Allergies Active Allergy Reactions Criticality Noted Date Comments Bee Venom Protein (Honey Bee) Anaphylaxis High 08/15 Medications EPINEPHrine (EPIPEN) 0.3 mg/0.3 mL Auto-Injector Inject 0.3 mg by intramuscular injection 1 time daily as needed for Anaphylaxis. Active Encounters Date Type Department Care Team Description 08/15/2024 9:14 AM CDT - 08/15/2024 11:15 AM CDT Emergency [facility] Emergency Department [address] [place] [address] Braulio Mckeon DO Allergic reaction, initial encounter (Primary Dx) Discharge Disposition: Home or Self Care 08/15/2024 Travel 08/01/2024 External Device Data ST[facility] ABSTRACTION Provider, Abstract 08/01/2024 External Device Data STL ABSTRACTION Provider, Abstract 07/31/2024 External Device Data STL ABSTRACTION Provider, Abstract 07/28/2024 8:15 AM CDT Ancillary Procedure [facility] [address] [place] [address] Annia Griffin, SALLY Dorsalgia, unspecified [...] on file 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 Annia Griffin [facility] MR ORDERABLES Final Result from Last 3 Months Insurance [facility] [employer] COMP
--- OUTSIDE RECORDS SUMMARY | 2024-08-20 19:32 | XMS_ITS | Encounter Summary ---
Author Organization [facility] Address 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
--- NOTE | 2024-08-20 19:48 | ED_ITS ---
HPI - GI Bleed General Chief complaint: Syncope Stated complaint: Bloody stool, weakness, Fever, Syncopal episode Time Seen by Provider: 08/20/24 19:09 Source: patient Mode of arrival: ambulatory Limitations: no limitations History of Present Illness HPI Narrative: This is a 38-year-old male, with history of esophageal stricture, who presents to the emergency department with complaints of dark tarry stools, coffee-ground emesis and a seizure. The patient states he does not have any known past seizure history. His passive bedside states he had and convulsions lasting approximately 5 minutes though there was no postictal. The patient has had history of alcohol withdrawal though denies history of seizures. He typically drinks on the weekends with last drink 2 days ago. He states he has had melena since last night approximately 4 stools. He vomited once with coffee-ground emesis in the emergency department waiting room. He states he is taking naproxen twice a day for the past month for left knee pain. He complains of mild epigastric dull pain. Related Data Home Medications ?Medication ?Instructions ?Recorded ?Confirmed ?Last Taken ?Type epinephrine 0.3 mg/0.3 mL 0.3 ml IM ONCE 09/09/23 09/09/23 Unknown History injection, auto-injector Allergies Allergy/AdvReac Type Severity Reaction Status Date / Time bee venom protein (honey bee) AdvReac Anaphylaxis Verified 08/20/24 18:50 wasp AdvReac Anaphylaxis Uncoded 08/20/24 18:50 Review of Systems 2 Review of Systems: All systems reviewed & are unremarkable except as noted in HPI and below PMFSH Past Medical History Medical History History of esophageal stricture Surgical History Surgical History No significant past surgical history Social History Social History Smoking status: Never smoker Alcohol intake: current Substance use: never Exam 2 Narrative: GENERAL: Well-developed, well-nourished, and in no acute distress. Dried coffee- ground blood noted at the lips. Pale HEAD: Normocephalic, atraumatic. EYES: PERRLA and EOMI. ENT: Nares clear, no rhinorrhea or epistaxis. Mucous membranes moist. Oropharynx without tonsillar hypertrophy exudate or other lesions. CHEST: Clear to auscultation. No respiratory distress. No wheezes rales or rhonchi HEART: Regular rate and rhythm. No murmur heard. Normal peripheral pulses. ABDOMEN: Soft, nontender, nondistended, normal active bowel sounds. EXTREMITIES: Normal range of motion. No edema. SKIN: Warm, dry, no rash. NEURO: Alert and oriented x3. No focal deficit. Moving all 4 limbs spontaneously PSYCH: Normal mood and affect. Course Course Emergency Course: 21:05 - CBC demonstrates white blood cell count of 12.5 and hemoglobin of 11.4 but is otherwise unremarkable. Chemistries demonstrate mild hyponatremia sodium of 133, bicarb of 16 with lactic acid of 4.7 and blood glucose of 228 but is otherwise unremarkable. CT angiogram of abdomen pelvis demonstrates hepatomegaly but is not otherwise concerning for mass or bleed. CT of the head unremarkable. On re-evaluation, the patient has not had any recurrent bleeding or vomiting. I discussed the patient with GI physician, Dr. Anderson who agrees to consult with plan for scope in the morning. I discussed the patient with hospitalist, Dr. Villeda who accepts admission. Vital Signs Vital signs: Vital Signs Temperature 97.6 F 08/20/24 18:57 Pulse Rate 112 H 08/20/24 18:57 Respiratory Rate 13 08/20/24 18:57 Blood Pressure 134/99 H 08/20/24 18:57 Pulse Oximetry 96 08/20/24 18:57 Oxygen Delivery Room Air 08/20/24 18:57 Temperature 97.6 F 08/20/24 18:57 Pulse Rate 92 08/20/24 19:25 Respiratory Rate 14 08/20/24 19:25 Blood Pressure 110/77 08/20/24 19:25 Pulse Oximetry 100 08/20/24 19:25 Oxygen Delivery Room Air 08/20/24 18:57 MDM - GI Bleed MDM Narrative Medical decision making narrative: Plan: Labs, IV fluids, type and screen, IV ppi, CIWA protocol, antiemetics, reassess Differential Diagnosis Differential diagnosis: Likely esophageal varices, gastritis, Upper gastrointestinal hemorrhage, Lower gastrointestinal hemorrhage and other (AV malformation, coagulopathy, seizure disorder, alcohol withdrawal seizures, anemia, metabolic abnormality, other) Lab Data 08/20/24 19:09 08/20/24 19:09 Labs: Lab Results 08/20/24 Range/Units 19:09 WBC 12.5 H (4.5-10.0) K/mm3 RBC 3.75 L (4.6-6.20) M/mm3 Hgb 11.4 L (14.0-18.0) g/dL Hct 35.2 L (42.0-52.0) % MCV 93.9 (80-100) fl MCH 30.4 (26-34) pg MCHC 32.4 (32-36) g/dl RDW 12.4 (11.5-14.5) % Plt Count 308 (150-375) k/mm3 MPV 10.5 H (7.4-10.4) fl Immature Gran % (Auto) 0.6 H (0-0.5) % Neut % (Auto) 68.1 (45.5-73.1) % Lymph % (Auto) 20.7 (18.3-44.2) % [place] % (Auto) 7.8 (2.6-8.5) % Eos % (Auto) 2.6 (0-4.4) % Baso % (Auto) 0.2 (0.2-1.2) % Lymph # (Auto) 2.58 (0.9-3.2) K/mm3 [place] # (Auto) 1.0 H (0.1-0.6) K/mm3 Eos # (Auto) 0.3 (0-0.3) K/mm3 Baso # (Auto) 0.0 (0.0-0.1) K/mm3 Abs Immat Gran (auto) 0.08 H (0.00-0.031) K/mm3 Absolute Neuts (auto) 8.5 H (1.3-6.7) K/mm3 Absolute Nucleated RBC 0.000 (0.0-0.012) K/mm3 Nucleated RBC % 0.0 (0.0-0.2) % PT 14.0 (11.1-14.7) Seconds INR 1.0 APTT 20.0 L (22.3-36.8) Seconds Sodium 133 L (137-145) mmol/L Potassium 3.8 (3.4-5.0) mmol/L Chloride 102 (98-107) mmol/L Carbon Dioxide 16 L (22-30) mmol/L Anion Gap 15 H (4-12) mmol/L BUN 37 H (9-20) mg/dL Creatinine 0.98 (0.7-1.3) mg/dL Estim Creat Clear Calc Not Reportable Estimated GFR > 60 (59 - ) Glucose 228 H (65-110) mg/dL Lactic Acid 4.7 H* (0.7-2.0) mmol/L Calcium 8.9 (8.4-10.2) mg/dL Magnesium 2.0 (1.6-2.3) mg/dL Total Bilirubin 0.8 (0.2-1.3) mg/dL AST 30 (17-59) U/L ALT 50 (6-50) U/L Alkaline Phosphatase 56 (38-126) U/L Total Protein 7.0 (6.3-8.2) g/dL Albumin 4.1 (3.5-5.1) g/dL Blood Type B Negative Antibody Screen Negative Discharge Plan Discharge Clinical Impression: Acute GI bleeding, Acidosis, lactic Alcohol withdrawal seizure Qualifiers: Complication of substance-induced condition: uncomplicated Qualified Code(s): F 10.930 - Alcohol use, unspecified with withdrawal, uncomplicated Patient Disposition: Still a Patient Condition: Serious Patient Language: Zimbabwean Prescriptions: No Action benzonatate 200 mg capsule 200 mg PO TID PRN (Reason: cough) Qty: 20 0RF prednisone 20 mg tablet 40 mg PO DAILY 5 Days Qty: 10 0RF amoxicillin 875 mg tablet 875 mg PO Q12H 10 Days Qty: 20 0RF loratadine [Claritin] 10 mg tablet 10 mg PO DAILY Qty: 30 0RF epinephrine 0.3 mg/0.3 mL auto-injector 0.3 ml IM ONCE Follow-up/Referrals: UNKNOWN,DOCTOR [Primary Care Provider] - Time of Disposition: 21:08
[2024-08-20 21:12] LABS: Glucose Point of Care 98 mg/dl (65-105)
[2024-08-20 21:13] LABS: Reflex Lactic Acid Yes or No Add Lactic
[2024-08-20 22:06] LABS: Lactic Acid 1.1 mmol/L (0.7-2.0)
--- NOTE | 2024-08-20 22:30 | ADMGEN ---
This patient, Lui Latham, was admitted to IMU Room 200-01. Patient/family oriented to hospital policies and general routines including ID bracelet, bed and alarms, visiting hours, pain management, procedures, bathroom and other care routines, personal items, smoking policy, room service/diet, and visiting hours. Information on how to activate the Rapid Response Team has been discussed. Patient/Family are encouraged to report perceived risks to care and to ask questions if they do not understand what they are told or what they should do.
--- NOTE | 2024-08-20 23:05 | PM.IMHP ---
H&P: HPI History of Present Illness Date/Time: 08/20/24 23:05 Chief Complaint: 1. Dizziness 2. Loss of consciousness 3. Seizures 4. Melena 5. 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 The plan was to have him undergo multiple steroid injections or because of weeks. He however has been on an OTC regimen of daily Tylenol with naproxen; in addition to his regimen she about 2-3 days [employer]IAN consumed more alcohol than his previously known baseline. He remains stable on so the last 24 hours when he developed symptoms of nausea, melenic stools, loose BMs, ground emesis. His symptoms were aggravated by meals/drinks, alleviated by fasting, associated with dizzy spells, which culminated in loss of consciousness while on the toilet bowl prior to presentation in the ED. The significant order to witnessed the episode, he was said to be stiff with eyes rolled back. He while sitting in the ED with the room felt dizzy spell call him again under versus lost consciousness. He confesses to experiencing episodes of vasovagal symptoms in the past due to blood draws He states that he does not currently smoke cigarettes or consume recreational/illicit drugs; but consumes alcohol in moderate fraction; he is a arguelles by profession Work-up findings: WBC 12.5; HGB 11.4; MCV 93.9; PLT 308 INR 1.0; PT 14; APTT 20 Na 133; K 3.8; Cl 102; CO2 16; HGB 15; BUN 37; CR 0.98; GFR > 60 LA 4.7> > 1.1 Mg 2.0 AST 30; ALT 50; ALP 56; T bilirubin 0.8 EKG: Sinus rhythm; no evidence of ischemia CTA abdomen/pelvis: Remarkable for hepatomegaly CT head: Unremarkable Lui Latham will be admitted, evaluated, and managed for GI bleed with syncopal seizures Review of Systems Review of Systems: All systems reviewed & are unremarkable except as noted in HPI and below PMFSH Past Medical History Medical History (Updated 08/21/24 @ 00:45 by David Villeda MD) Allergy to bee sting History of esophageal stricture Surgical History Surgical History No significant past surgical history Family History Family History (Updated 08/20/24 @ 22:30 by Zack Beckham RN) Mother High cholesterol Social History Social History Smoking status: Never smoker Alcohol intake: current Drinks per week: 18 Substance use: former Do You Feel Safe in your Home?: Yes Lack of Transportation: No Lack of Food: Never True Current Housing: I Have Housing Concerned About Future Housing: No Difficulty Paying Gas/Electric Bills: No Difficulty Paying for Meds: No Currently Unemployed: No Education: Trade/Vocational Certificate Difficulty w/ Childcare or Family Care: No Spiritual care concerns: No Meds Home Medications and Allergies Home Medications ?Medication ?Instructions ?Recorded ?Confirmed ?Type epinephrine 0.3 mg/0.3 mL 0.3 ml IM ONCE 09/09/23 08/20/24 History injection, auto-injector naproxen 500 mg tablet 500 mg PO Q12H 08/20/24 08/20/24 History Allergies Allergy/AdvReac Type Severity Reaction Status Date / Time bee venom protein (honey bee) AdvReac Anaphylaxis Verified 08/20/24 18:50 wasp AdvReac Anaphylaxis Uncoded 08/20/24 18:50 Vital Signs Vital Signs - 24 hr 08/20/24 18:57 08/20/24 19:24 08/20/24 19:25 Temperature 97.6 F Pulse Rate 112 H 92 92 Pulse Rate [Right Radial Palpation] Respiratory Rate 13 14 Blood Pressure 134/99 H 110/77 Pulse Oximetry 96 100 Oxygen Delivery Room Air 08/20/24 21:40 08/20/24 22:12 Temperature 98.2 F Pulse Rate 111 H Pulse Rate [Right Radial Palpation] 99 Respiratory Rate 17 Blood Pressure 112/79 Pulse Oximetry 99 Oxygen Delivery Exam Const: General: no acute distress and uncomfortable HENMT: Ears: TM's normal bilaterally Face/Nose/Sinus: Normal nares present Eyes: General: appearance normal, both eyes and all related structures Sclera: sclerae normal Pupils: Equal, round and reactive pupils present Neck: Neck: supple Resp: Effort & Inspection: normal respiratory effort Auscultation: no crackles, no rales and no rhonchi Cardio: Rate: regular rate Rhythm: regular rhythm GI: GI Palp: Yes Soft to palpation, No Tenderness to palpation present (GI) and No Guarding due to palpation present (GI) Auscultation: normal bowel sounds Skin: General skin exam: normal color Lesions: no lesions noted Rashes: no rashes noted Neuro: General: gait normal Speech: normal speech Motor exam (neuro): 5/5 motor strength present throughout, Normal motor muscle tone present throughout and Abnormal motor strength present Extrem: General: normal to inspection and normal exam except as noted Psych: Mental Status: mental status grossly normal Affect: normal affect and Anxious affect present H&P: Results Labs Labs: Short CBC 08/20/24 Range/Units 19:09 WBC 12.5 H (4.5-10.0) K/mm3 Hgb 11.4 L (14.0-18.0) g/dL Hct 35.2 L (42.0-52.0) % Plt Count 308 (150-375) k/mm3 BMP 08/20/24 19:09 Sodium 133 L Potassium 3.8 Chloride 102 Carbon Dioxide 16 L BUN 37 H Creatinine 0.98 Glucose 228 H Calcium 8.9 Liver Function 08/20/24 Range/Units 19:09 Total Bilirubin 0.8 (0.2-1.3) mg/dL AST 30 (17-59) U/L ALT 50 (6-50) U/L Alkaline Phosphatase 56 (38-126) U/L Albumin 4.1 (3.5-5.1) g/dL Assessment and Plan Assessment and plan (1) Acute GI bleeding: Code(s): K92.2 - Gastrointestinal hemorrhage, unspecified Status: Acute (2) Syncopal seizure: Code(s): R55 - Syncope and collapse; R56.9 - Unspecified convulsions Status: Acute (3) Acidosis, lactic: Code(s): E87.20 - Acidosis, unspecified Status: Acute (4) Allergy to bee sting: Code(s): Z91.030 - Bee allergy status Status: Acute Plan Acute and principal conditions 1. GIB. Melena; Coffee ground emesis. Probably 2/2 NSAIDs use with alcohol overuse 2. Syncopal seizures 3. Lactic acidemia. Likely post-ictal 4. Loss of consciousness Rx: A. iVFs; NPO; B. Monitor Hb with goal >7 C. GI consulted; PPI D. Seizures and safety precautions E. Levetiracetam Chronic and stable conditions 1. Bee sting allergy. On Epinephrine 2. Back pain. Herniated discs 3. Hepatomegaly Miscellaneous care 1. Code status. Full 2. VTE prophylaxis. SCDs; holding pharmacologic VTE due to GIB 3. Nutrition. NPO Quality VTE Prophylaxis VTE prophylaxis: mechanical ordered If No VTE Prophylaxis Answer both mechanical and pharmacologic: Reason no mechanical VTE proph: medical contraindication Hospitalist MIPS Advance Care Plan I have confirmed that the patient's Advanced Care Plan is present, code status is documented, or surrogate decision maker is listed in patient medical record.: Yes Medication Reconciliation I have utilized all available resources to obtain, update and review the patients current medications (includes all prescriptions, OTC, herbals, cannabis, and nutritional supplements).: Yes The patient is not eligible for med reconciliation; the patient is in a emergent medical situation where delaying treatment would jeopardize the patients health.: Yes
[2024-08-20 23:35] LABS: Glucose Point of Care 105 mg/dl (65-105)
[2024-08-21] VITALS (19 sets, daily range): BP systolic 99–142; BP diastolic 50–91; PULSE 77–109; RESP 12–23; TEMP 36.4–37.1; O2SAT 100; BMI 25.9
[2024-08-21 04:30] LABS: Basophils Percent Auto 0.3 % (0.2-1.2); Eosinophils Absolute Auto 0.3 K/mm3 (0-0.3); Eosinophils Percent Auto 3.1 % (0-4.4); Hematocrit 30.8 % (42.0-52.0); Hemoglobin 10.3 g/dL (14.0-18.0); Immature Granulocyte Absolute 0.04 K/mm3 (0.00-0.031); Immature Granulocyte Percent A 0.4 % (0-0.5); Lymphocytes Absolute Auto 2.63 K/mm3 (0.9-3.2); Lymphocytes Percent Auto 27.4 % (18.3-44.2); Mean Corpuscular HGB Conc 33.4 g/dl (32-36); Mean Corpuscular Hemoglobin 31.3 pg (26-34); Mean Corpuscular Volume 93.6 fl (80-100); Mean Platelet Volume 10.6 fl (7.4-10.4); Monocytes Absolute Auto 0.8 K/mm3 (0.1-0.6); Monocytes Percent Auto 8.1 % (2.6-8.5); Neutrophils Absolute Auto 5.8 K/mm3 (1.3-6.7); Neutrophils Percent Auto 60.7 % (45.5-73.1); Platelet Count Result 252 k/mm3 (150-375); Red Blood Count 3.29 M/mm3 (4.6-6.20); Red Cell Distribution Width 12.5 % (11.5-14.5); White Blood Count 9.6 K/mm3 (4.5-10.0)
[2024-08-21] MEDS: HYDROmorphone HCL INJ (*CRX) 1 MG/ML SYR IV PUSH (04:55)
[2024-08-21 04:56] LABS: Anion Gap 7 mmol/L (4-12); Blood Urea Nitrogen 26 mg/dL (9-20); Calcium 8.4 mg/dL (8.4-10.2); Carbon Dioxide 22 mmol/L (22-30); Chloride 106 mmol/L (98-107); Estimated Glomerular Filt Rate > 60; Glucose 93 mg/dL (65-110); Potassium 3.8 mmol/L (3.4-5.0); Sodium 135 mmol/L (137-145)
[2024-08-21] MEDS: levETIRAcetam 1000MG/NACL100ML 1,000 MG/100 ML BAG 400 MG IVPB ×2 (05:00→05:14)
[2024-08-21] MEDS: SODIUM CHLORIDE 0.9% IV 1,000 ML 100 ML IV CONT ×2 (05:14→18:25)
[2024-08-21] MEDS: ACETAMINOPHEN 500 MG TABLET PO ×3 (05:15→20:34)
--- NOTE | 2024-08-21 07:36 | PM.IMPN ---
Progress Note: A&P Assessment and Plan (1) Acute GI bleeding: Code(s): K92.2 - Gastrointestinal hemorrhage, unspecified Status: Acute (2) Syncopal seizure: Code(s): R55 - Syncope and collapse; R56.9 - Unspecified convulsions Status: Acute (3) Acidosis, lactic: Code(s): E87.20 - Acidosis, unspecified Status: Acute (4) Allergy to bee sting: Code(s): Z91.030 - Bee allergy status Status: Acute Plan GI bleed Monitor H&H Endoscopy shows gastritis and duodenitis Advised to use Tylenol and not NSAIDs for chronic back pain Pantoprazole 40 mg b.i.d. Transfuse for hemoglobin less than 7 GI consulted Seizures New onset Head CT shows no acute intracranial hemorrhage or suspicious mass-effect History of alcoholism No evidence of electrolyte abnormalities including blood glucose No evidence of infection Neurology evaluated Eeg pending Subjective Date/time seen: 08/21/24 07:36 Interval history: Interval Hx: 38-year-old male, with history of esophageal stricture, who presents to the emergency department with complaints of dark tarry stools, coffee-ground emesis and a seizure. CT angiogram of abdomen pelvis demonstrates hepatomegaly but is not otherwise concerning for mass or bleed. CT of the head unremarkable. 08/21: Upper endoscopy shows gastritis and duodenitis. Ordered UDS and ETOH level. Consulted Neurology for seizures. Neurology recommended MRI if another episode of seizure happens and believed the syncopal episode most likely secondary to GI bleed. Pending EEG Review of Systems Review of Systems: All systems reviewed & are unremarkable except as noted in HPI and below Exam Const: General: no acute distress and uncomfortable HENMT: Ears: TM's normal bilaterally Face/Nose/Sinus: Normal nares present Eyes: General: appearance normal, both eyes and all related structures Sclera: sclerae normal Pupils: Equal, round and reactive pupils present Neck: Neck: supple Resp: Effort & Inspection: normal respiratory effort Auscultation: no crackles, no rales and no rhonchi Cardio: Rate: regular rate Rhythm: regular rhythm GI: Auscultation: normal bowel sounds Skin: General skin exam: normal color, No lesion and No rashes Lesions: no lesions noted Rashes: no rashes noted Neuro: General: gait normal Cranial nerves: Yes Equal, round and reactive pupils present Speech: normal speech Motor exam (neuro): 5/5 motor strength present throughout, Normal motor muscle tone present throughout and Abnormal motor strength present Extrem: General: normal to inspection and normal exam except as noted Psych: Mental Status: mental status grossly normal Affect: normal affect and Anxious affect present Objective Data Vital Signs Vital Signs: Vital Signs - 24 hr 08/20/24 18:57 08/20/24 19:24 08/20/24 19:25 Temperature 97.6 F Pulse Rate 112 H 92 92 Pulse Rate [Right Radial Palpation] Respiratory Rate 13 14 Blood Pressure 134/99 H 110/77 Pulse Oximetry 96 100 Oxygen Delivery Room Air 08/20/24 21:40 08/20/24 22:12 08/20/24 23:21 Temperature 98.2 F Pulse Rate 111 H Pulse Rate [Right Radial Palpation] 99 99 Respiratory Rate 17 Blood Pressure 112/79 112/79 Pulse Oximetry 99 Oxygen Delivery 08/20/24 23:39 08/20/24 23:39 08/20/24 23:45 Temperature 98 F Pulse Rate 101 H 111 H 107 H Pulse Rate [Right Radial Palpation] Respiratory Rate 17 17 Blood Pressure 135/80 Pulse Oximetry 99 100 Oxygen Delivery Room Air 08/21/24 04:00 08/21/24 04:00 08/21/24 04:00 Temperature Pulse Rate 100 100 Pulse Rate [Right Radial Palpation] 100 Respiratory Rate 17 Blood Pressure 135/80 Pulse Oximetry 100 Oxygen Delivery Room Air 08/21/24 04:00 08/21/24 06:00 Temperature 98 F Pulse Rate 109 H 100 Pulse Rate [Right Radial Palpation] Respiratory Rate 18 Blood Pressure 142/91 H Pulse Oximetry 100 Oxygen Delivery Intake/Output Intake/Output: Intake & Output 08/18/24 08/19/24 08/20/24 08/21/24 23:59 23:59 23:59 23:59 Intake Total 2000 Output Total 400 Balance 1600 Meds/Results Medications: Active Medications Generic Name Dose Route Start Last Admin Trade Name Freq PRN Reason Stop Dose Admin Acetaminophen 500 mg 08/21/24 04:52 08/21/24 05:15 Acetaminophen 500 Mg Tablet PO 500 mg Q4H PRN Administration Mild Pain (1-3) or Fever Sodium Chloride 1,000 mls @ 100 mls/hr 08/20/24 22:45 08/21/24 05:14 Normal Saline Iv IV CONT 100 mls/hr .Q10H MELO Administration Ondansetron HCl 4 mg 08/20/24 21:08 Ondansetron Inj 4 Mg/2 Ml Vial IV PUSH Q4H PRN Nausea Pantoprazole Sodium 40 mg 08/21/24 09:00 Pantoprazole Sodium Iv 40 Mg Vial IV PUSH Q12HR MELO Radiology Results: ITS Impressions Head CT 08/20/24 20:31 Impression: No acute intracranial hemorrhage or suspicious mass effect. Inflammatory sinus disease Abdomen/Pelvis CTA 08/20/24 20:35 IMPRESSION: Hepatomegaly. Otherwise, unremarkable CTA examination of the abdomen and pelvis, as detailed above. Labs Labs: Laboratory Results - last 24 hr 08/20/24 08/20/24 08/20/24 19:09 21:10 21:36 WBC 12.5 H RBC 3.75 L Hgb 11.4 L Hct 35.2 L MCV 93.9 MCH 30.4 MCHC 32.4 RDW 12.4 Plt Count 308 MPV 10.5 H Immature Gran % (Auto) 0.6 H Neut % (Auto) 68.1 Lymph % (Auto) 20.7 Canadian % (Auto) 7.8 Eos % (Auto) 2.6 Baso % (Auto) 0.2 Lymph # (Auto) 2.58 Canadian # (Auto) 1.0 H Eos # (Auto) 0.3 Baso # (Auto) 0.0 Abs Immat Gran (auto) 0.08 H Absolute Neuts (auto) 8.5 H Absolute Nucleated RBC 0.000 Nucleated RBC % 0.0 PT 14.0 INR 1.0 APTT 20.0 L Sodium 133 L Potassium 3.8 Chloride 102 Carbon Dioxide 16 L Anion Gap 15 H BUN 37 H Creatinine 0.98 Estim Creat Clear Calc Not Reportable Estimated GFR > 60 Glucose 228 H POC Capillary Glucose 98 Lactic Acid 4.7 H* 1.1 Calcium 8.9 Magnesium 2.0 Total Bilirubin 0.8 AST 30 ALT 50 Alkaline Phosphatase 56 Total Protein 7.0 Albumin 4.1 Blood Type B Negative Antibody Screen Negative 08/20/24 08/21/24 23:33 03:49 WBC 9.6 RBC 3.29 L Hgb 10.3 L Hct 30.8 L MCV 93.6 MCH 31.3 MCHC 33.4 RDW 12.5 Plt Count 252 MPV 10.6 H Immature Gran % (Auto) 0.4 Neut % (Auto) 60.7 Lymph % (Auto) 27.4 Canadian % (Auto) 8.1 Eos % (Auto) 3.1 Baso % (Auto) 0.3 Lymph # (Auto) 2.63 Canadian # (Auto) 0.8 H Eos # (Auto) 0.3 Baso # (Auto) 0.0 Abs Immat Gran (auto) 0.04 H Absolute Neuts (auto) 5.8 Absolute Nucleated RBC 0.000 Nucleated RBC % 0.0 PT INR APTT Sodium 135 L Potassium 3.8 Chloride 106 Carbon Dioxide 22 Anion Gap 7 BUN 26 H D Creatinine 0.78 Estim Creat Clear Calc Not Reportable Estimated GFR > 60 Glucose 93 POC Capillary Glucose 105 Lactic Acid Calcium 8.4 Magnesium Total Bilirubin AST ALT Alkaline Phosphatase Total Protein Albumin Blood Type Antibody Screen Quality VTE Prophylaxis VTE prophylaxis: mechanical ordered Hospitalist MIPS Advance Care Plan I have confirmed that the patient's Advanced Care Plan is present, code status is documented, or surrogate decision maker is listed in patient medical record.: Yes Medication Reconciliation I have utilized all available resources to obtain, update and review the patients current medications (includes all prescriptions, OTC, herbals, cannabis, and nutritional supplements).: Yes
[2024-08-21] MEDS: PANTOPRAZOLE SODIUM IV 40 MG VIAL IV PUSH (08:14)
[2024-08-21 09:35] LABS: Ethanol < 10 mg/dL (<10)
[2024-08-21] MEDS: LACTATED RINGERS 1,000 ML 150 ML IV CONT (09:55)
--- NOTE | 2024-08-21 10:30 | WPDGICN ---
Assessment and Plan Assessment and plan (1) Melena: Code(s): K92.1 - Melena Status: Acute Assessment and Plan: we will proceed with egd, probably gastric ulcers since he has been using daily nsaid's, also more alcohol than usual (no cirrhosis but still need to assess if varices, etc) monitor for more signs of bleeding ppi (2) Coffee ground emesis: Code(s): K92.0 - Hematemesis Status: Acute Assessment and Plan: will assess with egd (3) Acute GI bleeding: Code(s): K92.2 - Gastrointestinal hemorrhage, unspecified Status: Acute Assessment and Plan: monitor h/h (4) Acidosis, lactic: Code(s): E87.20 - Acidosis, unspecified Status: Acute Assessment and Plan: resolved probably form gib/dehydration/syncope (5) Syncopal seizure: Code(s): R55 - Syncope and collapse; R56.9 - Unspecified convulsions Status: Acute (6) NSAID induced gastritis: Code(s): K29.60 - Other gastritis without bleeding; T39.395A - Adverse effect of other nonsteroidal anti-inflammatory drugs [NSAID], initial encounter Status: Acute Assessment and Plan: stop using nsaid's h/o back pain GI Consult Note Consult date/time: 08/21/24 10:30 Reason for consult: melena, coffee ground emesis HPI: Lui Latham is a 38 year old male with history of seizure as kid who about a month ago developed back pain for which has been taking daily daily Tylenol with naproxen, also has been drinking more alcohol than usual. He says that had EGD more than 10 years ago because constricted esophagus but he is not taking medication for that. He has been nauseous and had melena in stools then while using restroom he became clammy, diaphoretic and then passed out. He contacted girlfriend before passing out and she thought that he had a seizure. CT scan reviewed, noted fatty liver. Had elevated lactic acid but normalized after fluids, normal liver enzymes, hgb 10 Review of Systems Constitutional: Constitutional: Reports lethargy Eyes: Eyes: Denies blurry vision ENT: Reports Normal hearing present Cardiovascular: Cardiovascular: Denies chest pain Respiratory: Respiratory: Denies cough Gastrointestinal: Gastrointestinal: Reports melena and Reports nausea Genitourinary: Genitourinary: Denies hematuria Musculoskeletal: Musculoskeletal: Reports back pain Integumentary/Breasts: Skin/Breast: Denies rash Neurologic: Denies Abnormal speech present Comments: syncope Psychiatric: Psychiatric: Denies behavioral changes [facility] Past Medical History Medical History (Updated 08/21/24 @ 10:50 by Lupillo Petty MD) NSAID induced gastritis Coffee ground emesis Melena Allergy to bee sting History of esophageal stricture Surgical History Surgical History No significant past surgical history Family History Family History Mother High cholesterol Social History Social History Smoking status: Never smoker Alcohol intake: current Drinks per week: 18 Substance use: former Do You Feel Safe in your Home?: Yes Lack of Transportation: No Lack of Food: Never True Current Housing: I Have Housing Concerned About Future Housing: No Difficulty Paying Gas/Electric Bills: No Difficulty Paying for Meds: No Currently Unemployed: No Education: Trade/Vocational Certificate Difficulty w/ Childcare or Family Care: No Spiritual care concerns: No Meds Home Medications and Allergies Home Medications ?Medication ?Instructions ?Recorded ?Confirmed ?Type epinephrine 0.3 mg/0.3 mL 0.3 ml IM ONCE 09/09/23 08/20/24 History injection, auto-injector naproxen 500 mg tablet 500 mg PO Q12H 08/20/24 08/20/24 History Allergies Allergy/AdvReac Type Severity Reaction Status Date / Time bee venom protein (honey bee) AdvReac Anaphylaxis Verified 08/21/24 09:57 wasp AdvReac Anaphylaxis Uncoded 08/21/24 09:57 Vital Signs Vital Signs - 24 hr 08/20/24 18:57 08/20/24 19:24 08/20/24 19:25 Temperature 97.6 F Pulse Rate 112 H 92 92 Pulse Rate [Right Radial Palpation] Respiratory Rate 13 14 Blood Pressure 134/99 H 110/77 Pulse Oximetry 96 100 Oxygen Delivery Room Air 08/20/24 21:40 08/20/24 22:12 08/20/24 23:21 Temperature 98.2 F Pulse Rate 111 H Pulse Rate [Right Radial Palpation] 99 99 Respiratory Rate 17 Blood Pressure 112/79 112/79 Pulse Oximetry 99 Oxygen Delivery 08/20/24 23:39 08/20/24 23:39 08/20/24 23:45 Temperature 98 F Pulse Rate 101 H 111 H 107 H Pulse Rate [Right Radial Palpation] Respiratory Rate 17 17 Blood Pressure 135/80 Pulse Oximetry 99 100 Oxygen Delivery Room Air 08/21/24 04:00 08/21/24 04:00 08/21/24 04:00 Temperature Pulse Rate 100 100 Pulse Rate [Right Radial Palpation] 100 Respiratory Rate 17 Blood Pressure 135/80 Pulse Oximetry 100 Oxygen Delivery Room Air 08/21/24 04:00 08/21/24 06:00 08/21/24 07:11 Temperature 98 F 98 F Pulse Rate 109 H 100 102 H Pulse Rate [Right Radial Palpation] Respiratory Rate 18 14 Blood Pressure 142/91 H 121/73 Pulse Oximetry 100 100 Oxygen Delivery 08/21/24 08:00 08/21/24 08:00 08/21/24 09:18 Temperature Pulse Rate 100 Pulse Rate [Right Radial Palpation] 99 Respiratory Rate Blood Pressure Pulse Oximetry 100 Oxygen Delivery Room Air 08/21/24 10:00 08/21/24 10:02 Temperature 97.5 F L Pulse Rate 99 93 Pulse Rate [Right Radial Palpation] Respiratory Rate 19 Blood Pressure 132/89 Pulse Oximetry 100 Oxygen Delivery Room Air Exam Const: General: comfortable and no acute distress HENMT: Face/Nose/Sinus: Normal nares present Eyes: General: appearance normal, both eyes and all related structures Neck: Neck: supple Resp: Auscultation: clear to auscultation bilaterally Cardio: Rate: regular rate Rhythm: regular rhythm GI: Inspection: non-distended GI Palp: Yes Soft to palpation and No Tenderness to palpation present (GI) Auscultation: normal bowel sounds Skin: General skin exam: no rashes or lesions noted Neuro: Speech: normal speech Motor exam (neuro): 5/5 motor strength present throughout Extrem: General: normal to inspection Psych: Mental Status: mental status grossly normal Results Labs 08/21/24 03:49 08/21/24 03:49 Labs: Short CBC 08/20/24 08/21/24 Range/Units 19:09 03:49 WBC 12.5 H 9.6 (4.5-10.0) K/mm3 Hgb 11.4 L 10.3 L (14.0-18.0) g/dL Hct 35.2 L 30.8 L (42.0-52.0) % Plt Count 308 252 (150-375) k/mm3 BMP 08/20/24 08/21/24 19:09 03:49 Sodium 133 L 135 L Potassium 3.8 3.8 Chloride 102 106 Carbon Dioxide 16 L 22 BUN 37 H 26 H D Creatinine 0.98 0.78 Glucose 228 H 93 Calcium 8.9 8.4 Liver Function 08/20/24 Range/Units 19:09 Total Bilirubin 0.8 (0.2-1.3) mg/dL AST 30 (17-59) U/L ALT 50 (6-50) U/L Alkaline Phosphatase 56 (38-126) U/L Albumin 4.1 (3.5-5.1) g/dL
--- NOTE | 2024-08-21 10:31 | WPDANESEPPF ---
Anes - Initial Pre Proc Eval Procedure: Operation Date: 08/21/24 15:30 Proposed Procedures p Esophagogastroduodenoscopy - Lupillo Petty MD Date/Time: 08/21/24 10:31 Surgeon: David Villeda MD Pre Op Diagnosis: GI Bleed Patient Data Age: 38 Gender: M Height: 1.68 m Weight: 73 kg Last Vital Signs Temp 36.4 C L 08/21/24 10:02 Pulse 93 08/21/24 10:02 Resp 19 08/21/24 10:02 BP 132/89 08/21/24 10:02 Pulse Ox 100 08/21/24 10:02 O2 Del Method Room Air 08/21/24 10:02 Allergies Allergy/AdvReac Type Severity Reaction Status Date / Time bee venom protein (honey bee) AdvReac Anaphylaxis Verified 08/21/24 09:57 wasp AdvReac Anaphylaxis Uncoded 08/21/24 09:57 Home Medications ?Medication ?Instructions ?Recorded ?Confirmed ?Type epinephrine 0.3 mg/0.3 mL 0.3 ml IM ONCE 09/09/23 08/20/24 History injection, auto-injector naproxen 500 mg tablet 500 mg PO Q12H 08/20/24 08/20/24 History Laboratory Tests 08/20/24 08/20/24 08/20/24 19:09 21:10 21:36 WBC 12.5 H K/mm3 (4.5-10.0) RBC 3.75 L M/mm3 (4.6-6.20) Hgb 11.4 L g/dL (14.0-18.0) Hct 35.2 L % (42.0-52.0) MCV 93.9 fl (80-100) MCH 30.4 pg (26-34) MCHC 32.4 g/dl (32-36) RDW 12.4 % (11.5-14.5) Plt Count 308 k/mm3 (150-375) MPV 10.5 H fl (7.4-10.4) Immature Gran % (Auto) 0.6 H % (0-0.5) Neut % (Auto) 68.1 % (45.5-73.1) Lymph % (Auto) 20.7 % (18.3-44.2) [place] % (Auto) 7.8 % (2.6-8.5) Eos % (Auto) 2.6 % (0-4.4) Baso % (Auto) 0.2 % (0.2-1.2) Lymph # (Auto) 2.58 K/mm3 (0.9-3.2) [place] # (Auto) 1.0 H K/mm3 (0.1-0.6) Eos # (Auto) 0.3 K/mm3 (0-0.3) Baso # (Auto) 0.0 K/mm3 (0.0-0.1) Abs Immat Gran (auto) 0.08 H K/mm3 (0.00-0.031) Absolute Neuts (auto) 8.5 H K/mm3 (1.3-6.7) Absolute Nucleated RBC 0.000 K/mm3 (0.0-0.012) Nucleated RBC % 0.0 % (0.0-0.2) PT 14.0 Seconds (11.1-14.7) INR 1.0 APTT 20.0 L Seconds (22.3-36.8) Sodium 133 L mmol/L (137-145) Potassium 3.8 mmol/L (3.4-5.0) Chloride 102 mmol/L (98-107) Carbon Dioxide 16 L mmol/L (22-30) Anion Gap 15 H mmol/L (4-12) BUN 37 H mg/dL (9-20) Creatinine 0.98 mg/dL (0.7-1.3) Estim Creat Clear Calc Not Reportable Estimated GFR > 60 (59 - ) Glucose 228 H mg/dL (65-110) POC Capillary Glucose 98 mg/dl (65-105) Lactic Acid 4.7 H* mmol/L 1.1 mmol/L (0.7-2.0) (0.7-2.0) Calcium 8.9 mg/dL (8.4-10.2) Magnesium 2.0 mg/dL (1.6-2.3) Total Bilirubin 0.8 mg/dL (0.2-1.3) AST 30 U/L (17-59) ALT 50 U/L (6-50) Alkaline Phosphatase 56 U/L (38-126) Total Protein 7.0 g/dL (6.3-8.2) Albumin 4.1 g/dL (3.5-5.1) Ethyl Alcohol Blood Type B Negative Antibody Screen Negative 08/20/24 08/21/24 08/21/24 23:33 03:49 08:04 WBC 9.6 K/mm3 (4.5-10.0) RBC 3.29 L M/mm3 (4.6-6.20) Hgb 10.3 L g/dL (14.0-18.0) Hct 30.8 L % (42.0-52.0) MCV 93.6 fl (80-100) MCH 31.3 pg (26-34) MCHC 33.4 g/dl (32-36) RDW 12.5 % (11.5-14.5) Plt Count 252 k/mm3 (150-375) MPV 10.6 H fl (7.4-10.4) Immature Gran % (Auto) 0.4 % (0-0.5) Neut % (Auto) 60.7 % (45.5-73.1) Lymph % (Auto) 27.4 % (18.3-44.2) [place] % (Auto) 8.1 % (2.6-8.5) Eos % (Auto) 3.1 % (0-4.4) Baso % (Auto) 0.3 % (0.2-1.2) Lymph # (Auto) 2.63 K/mm3 (0.9-3.2) [place] # (Auto) 0.8 H K/mm3 (0.1-0.6) Eos # (Auto) 0.3 K/mm3 (0-0.3) Baso # (Auto) 0.0 K/mm3 (0.0-0.1) Abs Immat Gran (auto) 0.04 H K/mm3 (0.00-0.031) Absolute Neuts (auto) 5.8 K/mm3 (1.3-6.7) Absolute Nucleated RBC 0.000 K/mm3 (0.0-0.012) Nucleated RBC % 0.0 % (0.0-0.2) PT INR APTT Sodium 135 L mmol/L (137-145) Potassium 3.8 mmol/L (3.4-5.0) Chloride 106 mmol/L (98-107) Carbon Dioxide 22 mmol/L (22-30) Anion Gap 7 mmol/L (4-12) BUN 26 H D mg/dL (9-20) Creatinine 0.78 mg/dL (0.7-1.3) Estim Creat Clear Calc Not Reportable Estimated GFR > 60 (59 - ) Glucose 93 mg/dL (65-110) POC Capillary Glucose 105 mg/dl (65-105) Lactic Acid Calcium 8.4 mg/dL (8.4-10.2) Magnesium Total Bilirubin AST ALT Alkaline Phosphatase Total Protein Albumin Ethyl Alcohol < 10 mg/dL (<10) Blood Type Antibody Screen Patient hx anesthesia problems: none Family hx anesthesia problems: none Results Review: All pre-operative results and documents have been reviewed as part of the pre-operative evaluation. [facility] Past Medical History Medical History Allergy to bee sting History of esophageal stricture Surgical History Surgical History No significant past surgical history Family History Family History Mother High cholesterol Social History Social History Smoking status: Never smoker Alcohol intake: current Drinks per week: 18 Substance use: former Do You Feel Safe in your Home?: Yes Lack of Transportation: No Lack of Food: Never True Current Housing: I Have Housing Concerned About Future Housing: No Difficulty Paying Gas/Electric Bills: No Difficulty Paying for Meds: No Currently Unemployed: No Education: Trade/Vocational Certificate Difficulty w/ Childcare or Family Care: No Spiritual care concerns: No Anes - Eval Final PreProcedure Day of Procedure 08/21/24 10:31 Patient weight: overweight Heart: regular rate and rhythm Lungs: clear to auscultation Airway: Mallampati scale class II Neurological: alert and oriented Last oral intake: >/= 8 hours ASA classification: IV Emergent: no Anesthetic plan: proceed Anesthesia type and monitoring: general GIVS and standard monitoring Results Review: All pre-operative results and documents have been reviewed as part of the pre-operative evaluation. Informed Consent: The patient's anesthetic plan and its attendant risks and benefits were discussed with the patient/family/POA. Questions were solicited and answers provided to the satisfaction of the patient/family/POA.
[2024-08-21] MEDS: BENZOCAINE (*SP) 60 ML SPRAY CAN (HURRICAINE) 1 SPRAY MUCOUS MEM (10:35)
[2024-08-21 11:24] LABS: Glucose Point of Care 81 mg/dl (65-105)
[2024-08-21] MEDS: ONDANSETRON INJ 4 MG/2 ML VIAL IV PUSH (11:26)
[2024-08-21 11:44] LABS: HPYLORIRESULT Negative (Negative)
--- NOTE | 2024-08-21 13:31 | WPDNEURCNPN ---
Assessment and Plan Assessment and plan (1) NSAID induced gastritis: Code(s): K29.60 - Other gastritis without bleeding; T39.395A - Adverse effect of other nonsteroidal anti-inflammatory drugs [NSAID], initial encounter Status: Acute (2) Syncopal seizure: Code(s): R55 - Syncope and collapse; R56.9 - Unspecified convulsions Status: Acute Plan 1. Syncopal episode most likely secondary to GI bleed 2. Possibility of seizure has been raised will obtain the EEG. Initial CT scan of the head was negative if during the hospitalizations something else happens we will obtain the MRI of the brain. Consult date: 08/21/24 HPI: Lui Latham is a 38 year old male Admitted to the hospital through the emergency room with ongoing history of esophageal stricture and recent complaints of dark tarry stools along with the vomiting and seizure. Reportedly patient does not have known history of the seizure disorder in the past he had convulsions lasting for [id number] though he was not postictal patient has has history of alcohol withdrawal syndrome but no mention about the seizures he typically drinks on the weekends with the last drink about 2 days ago he noted melena with 4 different stools and vomited coffee-ground material the emergency room. He has been taking naproxen twice a day for the last 4 weeks for the complaints of left knee pain at the time of visit to the ER he was complaining of mild epigastric dull pain. As mentioned before history of esophageal stricture, never smoker, currently alcohol intake, and initial exam in the emergency room grossly nonfocal with vital signs normal except blood pressure 134/99, CBC with hemoglobin 11.4 and platelet count of 308, BMP normal with blood sugar of 2-8, and mast scan normal with normal hepatic enzymes normal total protein normal albumin and blood groping of being negative. 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 Review of Systems Review of Systems: All systems reviewed & are unremarkable except as noted in HPI and below PMFSH Past Medical History Medical History NSAID induced gastritis Coffee ground emesis Melena Allergy to bee sting History of esophageal stricture Surgical History Surgical History No significant past surgical history Family History Family History Mother High cholesterol Social History Social History Smoking status: Never smoker Alcohol intake: current Drinks per week: 18 Substance use: former Do You Feel Safe in your Home?: Yes Lack of Transportation: No Lack of Food: Never True Current Housing: I Have Housing Concerned About Future Housing: No Difficulty Paying Gas/Electric Bills: No Difficulty Paying for Meds: No Currently Unemployed: No Education: Trade/Vocational Certificate Difficulty w/ Childcare or Family Care: No Spiritual care concerns: No Meds Home Medications and Allergies Home Medications ?Medication ?Instructions ?Recorded ?Confirmed ?Type epinephrine 0.3 mg/0.3 mL 0.3 ml IM ONCE 09/09/23 08/20/24 History injection, auto-injector naproxen 500 mg tablet 500 mg PO Q12H 08/20/24 08/20/24 History Allergies Allergy/AdvReac Type Severity Reaction Status Date / Time bee venom protein (honey bee) AdvReac Anaphylaxis Verified 08/21/24 09:57 wasp AdvReac Anaphylaxis Uncoded 08/21/24 09:57 Vital Signs Vital Signs - 24 hr 08/20/24 18:57 08/20/24 19:24 08/20/24 19:25 Temperature 36.4 C Pulse Rate 112 H 92 92 Pulse Rate [Bilateral Radial Palpation] Pulse Rate [Right Radial Palpation] Respiratory Rate 13 14 Blood Pressure 134/99 H 110/77 Pulse Oximetry 96 100 Oxygen Delivery Room Air 08/20/24 21:40 08/20/24 22:12 08/20/24 23:21 Temperature 36.8 C Pulse Rate 111 H Pulse Rate [Bilateral Radial Palpation] Pulse Rate [Right Radial Palpation] 99 99 Respiratory Rate 17 Blood Pressure 112/79 112/79 Pulse Oximetry 99 Oxygen Delivery 08/20/24 23:39 08/20/24 23:39 08/20/24 23:45 Temperature 36.6 C Pulse Rate 101 H 111 H 107 H Pulse Rate [Bilateral Radial Palpation] Pulse Rate [Right Radial Palpation] Respiratory Rate 17 17 Blood Pressure 135/80 Pulse Oximetry 99 100 Oxygen Delivery Room Air 08/21/24 04:00 08/21/24 04:00 08/21/24 04:00 Temperature Pulse Rate 100 100 Pulse Rate [Bilateral Radial Palpation] Pulse Rate [Right Radial Palpation] 100 Respiratory Rate 17 Blood Pressure 135/80 Pulse Oximetry 100 Oxygen Delivery Room Air 08/21/24 04:00 08/21/24 06:00 08/21/24 07:11 Temperature 36.6 C 36.6 C Pulse Rate 109 H 100 102 H Pulse Rate [Bilateral Radial Palpation] Pulse Rate [Right Radial Palpation] Respiratory Rate 18 14 Blood Pressure 142/91 H 121/73 Pulse Oximetry 100 100 Oxygen Delivery 08/21/24 08:00 08/21/24 08:00 08/21/24 09:18 Temperature Pulse Rate 100 Pulse Rate [Bilateral Radial Palpation] Pulse Rate [Right Radial Palpation] 99 Respiratory Rate Blood Pressure Pulse Oximetry 100 Oxygen Delivery Room Air 08/21/24 10:00 08/21/24 10:02 08/21/24 10:43 Temperature 36.4 C L Pulse Rate 99 93 102 H Pulse Rate [Bilateral Radial Palpation] Pulse Rate [Right Radial Palpation] Respiratory Rate 19 23 H Blood Pressure 132/89 99/50 L Pulse Oximetry 100 100 Oxygen Delivery Room Air Room Air 08/21/24 10:53 08/21/24 11:03 08/21/24 11:27 Temperature 36.5 C Pulse Rate 103 H 95 96 Pulse Rate [Bilateral Radial Palpation] Pulse Rate [Right Radial Palpation] Respiratory Rate 20 16 14 Blood Pressure 119/78 142/85 H 120/81 Pulse Oximetry 100 100 100 Oxygen Delivery Room Air Room Air 08/21/24 11:58 08/21/24 12:00 08/21/24 12:00 Temperature Pulse Rate 77 Pulse Rate [Bilateral Radial Palpation] 84 Pulse Rate [Right Radial Palpation] Respiratory Rate Blood Pressure Pulse Oximetry Oxygen Delivery Room Air Exam Narrative: Exam today revealed him to be awake alert in no obvious acute distress, head normocephalic with no bruit, ear nose throat examination normal, neck supple with no restriction of the movements, heart regular with no murmur, lungs clear to auscultation with no rhonchi or crepitations, abdomen is soft with normal bowel sounds, neurologically patient awake alert oriented x3, his speech not dysphasic not dysarthric not dysphonic, pupils round regular reacting to light equally, extraocular movements full with no nystagmus, facial sensation intact, face symmetrical, tongue in the oral cavity, motor examination revealed him to have normal strength and tone in upper and lower extremities proximally and distally with no evidence of 1 side or other side drift against gravity and deep tendon reflexes symmetrical plantars are downgoing no evidence of ataxia or dysmetria on [id number]-finger heel to knee to rios. Results Labs 08/21/24 03:49 08/21/24 03:49 Labs: Short CBC 08/20/24 08/21/24 Range/Units 19:09 03:49 WBC 12.5 H 9.6 (4.5-10.0) K/mm3 Hgb 11.4 L 10.3 L (14.0-18.0) g/dL Hct 35.2 L 30.8 L (42.0-52.0) % Plt Count 308 252 (150-375) k/mm3 BMP 08/20/24 08/21/24 19:09 03:49 Sodium 133 L 135 L Potassium 3.8 3.8 Chloride 102 106 Carbon Dioxide 16 L 22 BUN 37 H 26 H D Creatinine 0.98 0.78 Glucose 228 H 93 Calcium 8.9 8.4 Liver Function 08/20/24 Range/Units 19:09 Total Bilirubin 0.8 (0.2-1.3) mg/dL AST 30 (17-59) U/L ALT 50 (6-50) U/L Alkaline Phosphatase 56 (38-126) U/L Albumin 4.1 (3.5-5.1) g/dL
[2024-08-21] MEDS: PANTOPRAZOLE 40 MG TABLET PO (20:34)
[2024-08-22] VITALS (9 sets, daily range): BP systolic 112–133; BP diastolic 70–81; PULSE 86–103; RESP 16–18; TEMP 36.7–37; O2SAT 100
[2024-08-22 04:24] LABS: Hematocrit 23.1 % (42.0-52.0); Hemoglobin 7.7 g/dL (14.0-18.0); Mean Corpuscular HGB Conc 33.3 g/dl (32-36); Mean Corpuscular Hemoglobin 31.3 pg (26-34); Mean Corpuscular Volume 93.9 fl (80-100); Mean Platelet Volume 10.6 fl (7.4-10.4); Platelet Count Result 186 k/mm3 (150-375); Red Blood Count 2.46 M/mm3 (4.6-6.20); Red Cell Distribution Width 12.6 % (11.5-14.5); White Blood Count 5.2 K/mm3 (4.5-10.0)
[2024-08-22 04:36] LABS: Alanine Aminotransferase 38 U/L (6-50); Albumin Level 3.1 g/dL (3.5-5.1); Alkaline Phosphatase 48 U/L (38-126); Anion Gap 4 mmol/L (4-12); Aspartate Amino Transferase 31 U/L (17-59); Bilirubin,Total 0.2 mg/dL (0.2-1.3); Blood Urea Nitrogen 14 mg/dL (9-20); Calcium 8.2 mg/dL (8.4-10.2); Carbon Dioxide 24 mmol/L (22-30); Chloride 106 mmol/L (98-107); Estimated CRCL calculation 99 ml/min; Estimated Glomerular Filt Rate > 60; Glucose 83 mg/dL (65-110); Sodium 134 mmol/L (137-145)
--- NOTE | 2024-08-22 08:14 | PM.IMPN ---
Progress Note: A&P Assessment and Plan (1) Acute GI bleeding: Code(s): K92.2 - Gastrointestinal hemorrhage, unspecified Status: Acute (2) Syncopal seizure: Code(s): R55 - Syncope and collapse; R56.9 - Unspecified convulsions Status: Acute (3) Acidosis, lactic: Code(s): E87.20 - Acidosis, unspecified Status: Acute (4) Allergy to bee sting: Code(s): Z91.030 - Bee allergy status Status: Acute Plan GI bleed Monitor H&H Endoscopy shows gastritis and duodenitis Advised to use Tylenol and not NSAIDs for chronic back pain Pantoprazole 40 mg b.i.d. Transfuse hemoglobin less than 7 GI consulted Seizures New onset Head CT shows no acute intracranial hemorrhage or suspicious mass-effect History of alcoholism No evidence of electrolyte abnormalities including blood glucose No evidence of infection Neurology evaluated EEG pending Subjective Date/time seen: 08/22/24 08:14 Interval history: Interval Hx: 38-year-old male, with history of esophageal stricture, who presents to the emergency department with complaints of dark tarry stools, coffee-ground emesis and a seizure. CT angiogram of abdomen pelvis demonstrates hepatomegaly but is not otherwise concerning for mass or bleed. CT of the head unremarkable.Upper endoscopy shows gastritis and duodenitis. Ordered UDS and ETOH level. Consulted Neurology for seizures. Neurology recommended MRI if another episode of seizure happens and believed the syncopal episode most likely secondary to GI bleed. Pending EEG. 08/22: HgB drop from 10.3-7.7. Patient is tachycardic but denies any chest pain. Pending EEG Review of Systems Review of Systems: All systems reviewed & are unremarkable except as noted in HPI and below Exam Const: General: no acute distress and uncomfortable HENMT: Ears: TM's normal bilaterally Face/Nose/Sinus: Normal nares present Eyes: General: appearance normal, both eyes and all related structures Sclera: sclerae normal Pupils: Equal, round and reactive pupils present Neck: Neck: supple Resp: Effort & Inspection: normal respiratory effort Auscultation: no crackles, no rales and no rhonchi Cardio: Rate: regular rate Rhythm: regular rhythm GI: Auscultation: normal bowel sounds Skin: General skin exam: normal color, No lesion and No rashes Lesions: no lesions noted Rashes: no rashes noted Neuro: General: gait normal Cranial nerves: Yes Equal, round and reactive pupils present Speech: normal speech Motor exam (neuro): 5/5 motor strength present throughout, Normal motor muscle tone present throughout and Abnormal motor strength present Extrem: General: normal to inspection and normal exam except as noted Psych: Mental Status: mental status grossly normal Affect: normal affect and Anxious affect present Objective Data Vital Signs Vital Signs: Vital Signs - 24 hr 08/21/24 09:18 08/21/24 10:00 08/21/24 10:02 Temperature 97.5 F L Pulse Rate 99 93 Pulse Rate [Bilateral Radial Palpation] Pulse Rate [Right Radial Palpation] Respiratory Rate 19 Blood Pressure 132/89 Pulse Oximetry 100 100 Oxygen Delivery Room Air Room Air 08/21/24 10:43 08/21/24 10:53 08/21/24 11:03 Temperature Pulse Rate 102 H 103 H 95 Pulse Rate [Bilateral Radial Palpation] Pulse Rate [Right Radial Palpation] Respiratory Rate 23 H 20 16 Blood Pressure 99/50 L 119/78 142/85 H Pulse Oximetry 100 100 100 Oxygen Delivery Room Air Room Air Room Air 08/21/24 11:27 08/21/24 11:58 08/21/24 12:00 Temperature 97.7 F Pulse Rate 96 Pulse Rate [Bilateral Radial Palpation] 84 Pulse Rate [Right Radial Palpation] Respiratory Rate 14 Blood Pressure 120/81 Pulse Oximetry 100 Oxygen Delivery Room Air 08/21/24 12:00 08/21/24 14:00 08/21/24 16:00 Temperature 98.3 F Pulse Rate 77 94 92 Pulse Rate [Bilateral Radial Palpation] Pulse Rate [Right Radial Palpation] Respiratory Rate 12 Blood Pressure 127/85 Pulse Oximetry 100 Oxygen Delivery 08/21/24 16:00 08/21/24 16:00 08/21/24 19:08 Temperature 98.7 F Pulse Rate 109 H 98 Pulse Rate [Bilateral Radial Palpation] 105 H Pulse Rate [Right Radial Palpation] Respiratory Rate 16 Blood Pressure 114/70 Pulse Oximetry 100 Oxygen Delivery 08/21/24 20:00 08/21/24 20:00 08/21/24 23:44 Temperature Pulse Rate 98 Pulse Rate [Bilateral Radial Palpation] 100 80 Pulse Rate [Right Radial Palpation] 99 99 Respiratory Rate Blood Pressure 114/70 114/70 Pulse Oximetry Oxygen Delivery 08/21/24 23:46 04/08/25 23:55 08/22/24 00:00 Temperature 98.6 F Pulse Rate 82 82 86 Pulse Rate [Bilateral Radial Palpation] Pulse Rate [Right Radial Palpation] Respiratory Rate 16 16 Blood Pressure Pulse Oximetry 100 100 Oxygen Delivery Room Air 08/22/24 03:48 08/22/24 03:49 08/22/24 08:00 Temperature 98.1 F Pulse Rate 86 92 Pulse Rate [Bilateral Radial Palpation] 87 Pulse Rate [Right Radial Palpation] 99 Respiratory Rate 16 Blood Pressure 114/70 112/78 Pulse Oximetry 100 Oxygen Delivery Intake/Output Intake/Output: Intake & Output 08/19/24 08/20/24 08/21/24 08/22/24 23:59 23:59 23:59 23:59 Intake Total 1999 2089 1100 Output Total 400 200 Balance 1600 1890 1100 Meds/Results Medications: Active Medications Generic Name Dose Route Start Last Admin Trade Name Freq PRN Reason Stop Dose Admin Acetaminophen 500 mg 08/21/24 04:52 08/21/24 20:34 Acetaminophen 500 Mg Tablet PO 500 mg Q4H PRN Administration Mild Pain (1-3) or Fever Sodium Chloride 1,000 mls @ 100 mls/hr 08/20/24 22:45 08/21/24 18:25 Normal Saline Iv IV CONT 100 mls/hr .Q10H MELO Administration Ondansetron HCl 4 mg 08/20/24 21:08 08/21/24 11:26 Ondansetron Inj 4 Mg/2 Ml Vial IV PUSH 4 mg Q4H PRN Administration Nausea Pantoprazole Sodium 40 mg 08/21/24 21:00 08/21/24 20:34 Pantoprazole 40 Mg Tablet PO 40 mg Q12HR MELO Administration Radiology Results: ITS Impressions Head CT 08/20/24 20:31 Impression: No acute intracranial hemorrhage or suspicious mass effect. Inflammatory sinus disease Abdomen/Pelvis CTA 08/20/24 20:35 IMPRESSION: Hepatomegaly. Otherwise, unremarkable CTA examination of the abdomen and pelvis, as detailed above. Labs Labs: Laboratory Results - last 24 hr 08/21/24 08/21/24 08/21/24 08:04 11:19 11:42 WBC RBC Hgb Hct MCV MCH MCHC RDW Plt Count MPV Sodium Potassium Chloride Carbon Dioxide Anion Gap BUN Creatinine Estim Creat Clear Calc Estimated GFR Glucose POC Capillary Glucose 81 Calcium Total Bilirubin AST ALT Alkaline Phosphatase Total Protein Albumin Ethyl Alcohol < 10 POC H. pylori Urease Negative 08/22/24 03:37 WBC 5.2 RBC 2.46 L Hgb 7.7 L Hct 23.1 L MCV 93.9 MCH 31.3 MCHC 33.3 RDW 12.6 Plt Count 186 MPV 10.6 H Sodium 134 L Potassium 4.0 Chloride 106 Carbon Dioxide 24 Anion Gap 4 BUN 14 D Creatinine 0.79 Estim Creat Clear Calc 99 Estimated GFR > 60 Glucose 83 POC Capillary Glucose Calcium 8.2 L Total Bilirubin 0.2 AST 31 ALT 38 Alkaline Phosphatase 48 Total Protein 5.0 L Albumin 3.1 L Ethyl Alcohol POC H. pylori Urease Quality VTE Prophylaxis VTE prophylaxis: mechanical ordered Hospitalist MIPS Advance Care Plan I have confirmed that the patient's Advanced Care Plan is present, code status is documented, or surrogate decision maker is listed in patient medical record.: Yes Medication Reconciliation I have utilized all available resources to obtain, update and review the patients current medications (includes all prescriptions, OTC, herbals, cannabis, and nutritional supplements).: Yes
[2024-08-22] MEDS: PANTOPRAZOLE 40 MG TABLET PO ×2 (09:55→20:41)
[2024-08-22] MEDS: SODIUM CHLORIDE 0.9% IV 1,000 ML 100 ML IV CONT (09:56)
[2024-08-22 16:43] LABS: Hematocrit 22.7 % (42.0-52.0); Hemoglobin 7.6 g/dL (14.0-18.0); Mean Corpuscular HGB Conc 33.5 g/dl (32-36); Mean Corpuscular Hemoglobin 31.5 pg (26-34); Mean Corpuscular Volume 94.2 fl (80-100); Mean Platelet Volume 10.3 fl (7.4-10.4); Platelet Count Result 190 k/mm3 (150-375); Red Blood Count 2.41 M/mm3 (4.6-6.20); Red Cell Distribution Width 12.8 % (11.5-14.5); White Blood Count 6.9 K/mm3 (4.5-10.0)
--- NOTE | 2024-08-22 17:23 | P.PNGI_ITS ---
Progress Note: A&P Assessment and Plan (1) Gastric ulcer: Code(s): K25.9 - Gastric ulcer, unspecified as acute or chronic, without hemorrhage or perforation Status: Acute Assessment and Plan: non bleeding ulcers ppi twice daily now no more nsaid's hgb down but no more melena, continue to monitor (2) Acute GI bleeding: Code(s): K92.2 - Gastrointestinal hemorrhage, unspecified Status: Acute Assessment and Plan: diet as tolerated (3) Melena: Code(s): K92.1 - Melena Status: Acute (4) NSAID induced gastritis: Code(s): K29.60 - Other gastritis without bleeding; T39.395A - Adverse effect of other nonsteroidal anti-inflammatory drugs [NSAID], initial encounter Status: Acute (5) Syncopal seizure: Code(s): R55 - Syncope and collapse; R56.9 - Unspecified convulsions Status: Acute Assessment and Plan: on [facility] protocol (6) Alcohol withdrawal seizure: Qualifiers: Complication of substance-induced condition: uncomplicated Qualified Code(s): F10.930 - Alcohol use, unspecified with withdrawal, uncomplicated; R56.9 - Unspecified convulsions Code(s): F10.939 - Alcohol use, unspecified with withdrawal, unspecified; R56.9 - Unspecified convulsions Status: Acute (7) Anemia: Code(s): D64.9 - Anemia, unspecified Status: Acute Subjective Date/time seen: 08/22/24 17:23 Interval history: egd yesterday with non bleeding gastric ulcers no signs of bleeding today but noted lower h/h Review of Systems Review of Systems: All systems reviewed & are unremarkable except as noted in HPI and below Exam Const: General: comfortable and no acute distress HENMT: Face/Nose/Sinus: Normal nares present Eyes: General: appearance normal, both eyes and all related structures Neck: Neck: supple Resp: Auscultation: clear to auscultation bilaterally Cardio: Rate: regular rate Rhythm: regular rhythm GI: Inspection: non-distended GI Palp: Yes Soft to palpation and No Tenderness to palpation present (GI) Auscultation: normal bowel sounds Skin: General skin exam: no rashes or lesions noted Neuro: Speech: normal speech Motor exam (neuro): 5/5 motor strength present throughout Extrem: General: normal to inspection Psych: Mental Status: mental status grossly normal Objective Data Vital Signs Vital Signs: Vital Signs - 24 hr 08/21/24 19:08 08/21/24 20:00 08/21/24 20:00 Temperature 98.7 F Pulse Rate 98 98 Pulse Rate [Bilateral Radial Palpation] 100 Pulse Rate [Monitor] Pulse Rate [Right Radial Palpation] 99 Respiratory Rate 16 Blood Pressure 114/70 114/70 Pulse Oximetry 100 Oxygen Delivery 08/21/24 23:44 08/21/24 23:46 08/21/24 23:55 Temperature Pulse Rate 82 82 Pulse Rate [Bilateral Radial Palpation] 80 Pulse Rate [Monitor] Pulse Rate [Right Radial Palpation] 99 Respiratory Rate 16 Blood Pressure 114/70 Pulse Oximetry 100 Oxygen Delivery Room Air 08/22/24 00:00 08/22/24 03:48 08/22/24 03:49 Temperature 98.6 F Pulse Rate 86 86 Pulse Rate [Bilateral Radial Palpation] 87 Pulse Rate [Monitor] Pulse Rate [Right Radial Palpation] 99 Respiratory Rate 16 Blood Pressure 114/70 Pulse Oximetry 100 Oxygen Delivery 08/22/24 08:00 08/22/24 08:00 08/22/24 08:00 Temperature 98.1 F Pulse Rate 92 97 Pulse Rate [Bilateral Radial Palpation] Pulse Rate [Monitor] 103 H Pulse Rate [Right Radial Palpation] Respiratory Rate 16 Blood Pressure 112/78 Pulse Oximetry 100 Oxygen Delivery 08/22/24 08:00 08/22/24 12:00 08/22/24 15:59 Temperature 98.5 F Pulse Rate 102 H 93 Pulse Rate [Bilateral Radial Palpation] Pulse Rate [Monitor] Pulse Rate [Right Radial Palpation] Respiratory Rate 18 Blood Pressure 129/79 Pulse Oximetry 100 100 Oxygen Delivery Room Air Intake/Output Intake/Output: Intake & Output 08/19/24 08/20/24 08/21/24 08/22/24 23:59 23:59 23:59 23:59 Intake Total 1999 2089 2700 Output Total 400 200 Balance 1600 1890 2700 Meds/Results Medications: Active Medications Generic Name Dose Route Start Last Admin Trade Name Freq PRN Reason Stop Dose Admin Acetaminophen 500 mg 08/21/24 04:52 08/21/24 20:34 Acetaminophen 500 Mg Tablet PO 500 mg Q4H PRN Administration Mild Pain (1-3) or Fever Ondansetron HCl 4 mg 08/20/24 21:08 08/21/24 11:26 Ondansetron Inj 4 Mg/2 Ml Vial IV PUSH 4 mg Q4H PRN Administration Nausea Pantoprazole Sodium 40 mg 08/21/24 21:00 08/22/24 09:55 Pantoprazole 40 Mg Tablet PO 40 mg Q12HR MELO Administration Radiology Results: ITS Impressions Head CT 08/20/24 20:31 Impression: No acute intracranial hemorrhage or suspicious mass effect. Inflammatory sinus disease Abdomen/Pelvis CTA 08/20/24 20:35 IMPRESSION: Hepatomegaly. Otherwise, unremarkable CTA examination of the abdomen and pelvis, as detailed above. Labs Labs: Laboratory Results - last 24 hr 08/22/24 08/22/24 03:37 16:37 WBC 5.2 6.9 RBC 2.46 L 2.41 L Hgb 7.7 L 7.6 L Hct 23.1 L 22.7 L MCV 93.9 94.2 MCH 31.3 31.5 MCHC 33.3 33.5 RDW 12.6 12.8 Plt Count 186 190 MPV 10.6 H 10.3 Sodium 134 L Potassium 4.0 Chloride 106 Carbon Dioxide 24 Anion Gap 4 BUN 14 D Creatinine 0.79 Estim Creat Clear Calc 99 Estimated GFR > 60 Glucose 83 Calcium 8.2 L Total Bilirubin 0.2 AST 31 ALT 38 Alkaline Phosphatase 48 Total Protein 5.0 L Albumin 3.1 L
[2024-08-23] VITALS: PULSE 103
[2024-08-23 04:00] VITALS: PULSE 89
[2024-08-23 04:39] LABS: Hematocrit 22.7 % (42.0-52.0); Hemoglobin 7.8 g/dL (14.0-18.0); Mean Corpuscular HGB Conc 34.4 g/dl (32-36); Mean Corpuscular Hemoglobin 32.9 pg (26-34); Mean Corpuscular Volume 95.8 fl (80-100); Mean Platelet Volume 10.6 fl (7.4-10.4); Platelet Count Result 212 k/mm3 (150-375); Red Blood Count 2.37 M/mm3 (4.6-6.20); White Blood Count 7.3 K/mm3 (4.5-10.0)
[2024-08-23 04:57] LABS: Alanine Aminotransferase 34 U/L (6-50); Albumin Level 3.3 g/dL (3.5-5.1); Alkaline Phosphatase 73 U/L (38-126); Anion Gap 6 mmol/L (4-12); Aspartate Amino Transferase 28 U/L (17-59); Bilirubin,Total 0.2 mg/dL (0.2-1.3); Blood Urea Nitrogen 13 mg/dL (9-20); Calcium 8.3 mg/dL (8.4-10.2); Carbon Dioxide 25 mmol/L (22-30); Chloride 106 mmol/L (98-107); Estimated CRCL calculation 89 ml/min; Estimated Glomerular Filt Rate > 60; Glucose 95 mg/dL (65-110); Potassium 3.5 mmol/L (3.4-5.0); Sodium 137 mmol/L (137-145)
[2024-08-23] MEDS: PANTOPRAZOLE 40 MG TABLET PO (07:43)
[2024-08-23 07:44] VITALS: BP 130/80; PULSE 93; RESP 18; TEMP 36.7; O2SAT 100
[2024-08-23 08:00] VITALS: PULSE 87; O2SAT 100
--- NOTE | 2024-08-23 11:49 | WPDNEUROLOGY ---
Neurology EEG Report General Information Date of Study: 08/23/24 TEST Electroencephalogram DIAGNOSIS loss of consciousness CONDITION OF RECORDING bedside according CLINICAL HISTORY loss of consciousness and GI bleeding EEG DESCRIPTION During wakefulness the background activity consists of posterior dominant alpha rhythm at 10 hertz with an amplitude of 20-40 microvolts which appears moderately formed. Anteriorly low amplitude mixed frequency activity was seen. There is a good anteroposterior gradient. Hyperventilation or photic stimulation were not performed. Patient did not progress to stage 2 sleep. IMPRESSION This is a normal EEG obtained during awake state.
[2024-08-23 12:00] VITALS: PULSE 92
--- NOTE | 2024-08-23 13:53 | P.DS_ITS ---
DS: Admitting Diagnosis Discharge Date 08/23/2024 Admitting Diagnosis Epilepsy and GI bleed DS: Discharge Diagnosis Discharge Diagnosis (1) Acute GI bleeding: Code(s): K92.2 - Gastrointestinal hemorrhage, unspecified Status: Acute (2) Syncopal seizure: Code(s): R55 - Syncope and collapse; R56.9 - Unspecified convulsions Status: Acute (3) Acidosis, lactic: Code(s): E87.20 - Acidosis, unspecified Status: Acute (4) Allergy to bee sting: Code(s): Z91.030 - Bee allergy status Status: Acute Plan GI bleed Monitor H&H Endoscopy shows gastritis and duodenitis Advised to use Tylenol and not NSAIDs for chronic back pain Pantoprazole 40 mg b.i.d. Transfuse hemoglobin less than 7 GI consulted Seizures New onset Head CT shows no acute intracranial hemorrhage or suspicious mass-effect History of alcoholism No evidence of electrolyte abnormalities including blood glucose No evidence of infection Neurology evaluated EEG normal DS: Summary Hospital Course Hospital Course: 38-year-old male, with history of esophageal stricture, who presents to the emergency department with complaints of dark tarry stools, coffee-ground emesis and a seizure. CT angiogram of abdomen pelvis demonstrates hepatomegaly but is not otherwise concerning for mass or bleed. CT of the head unremarkable. 08/21: Upper endoscopy shows gastritis and duodenitis. Ordered UDS and ETOH level , both are negative. Consulted Neurology for seizures. Neurology recommended MRI if another episode of seizure happens and believed the syncopal episode most likely secondary to GI bleed. Performed EEG which is normal. Advised patient to follow up closely with GI for colonoscopy and neurology for seizures and follow up with PCP for anemia. If anemia doesnt resolve advised to see . Time Spent with Patient Time attestation: Total time spent providing and/or coordinating discharge services: 45 minutes Exam Const: General: no acute distress and uncomfortable HENMT: Ears: TM's normal bilaterally Face/Nose/Sinus: Normal nares present Eyes: General: appearance normal, both eyes and all related structures Sclera: sclerae normal Pupils: Equal, round and reactive pupils present Neck: Neck: supple Resp: Effort & Inspection: normal respiratory effort Auscultation: no crackles, no rales and no rhonchi Cardio: Rate: regular rate Rhythm: regular rhythm GI: Auscultation: normal bowel sounds Skin: General skin exam: normal color, No lesion and No rashes Lesions: no lesions noted Rashes: no rashes noted Neuro: General: gait normal Cranial nerves: Yes Equal, round and reactive pupils present Speech: normal speech Motor exam (neuro): 5/5 motor strength present throughout, Normal motor muscle tone present throughout and Abnormal motor strength present Extrem: General: normal to inspection and normal exam except as noted Psych: Mental Status: mental status grossly normal Affect: normal affect and Anxious affect present DS: Data Data Completed and Pending Completed studies during hospitalization: Pending at discharge 08/21/24 10:42 Surgical [PTH] Routine Labs on day of discharge: Labs from last 24 hours 08/23/24 08/23/24 08/22/24 03:42 03:41 16:37 WBC 7.3 6.9 RBC 2.37 L 2.41 L Hgb 7.8 L 7.6 L Hct 22.7 L 22.7 L MCV 95.8 94.2 MCH 32.9 31.5 MCHC 34.4 33.5 RDW 13.0 12.8 Plt Count 212 190 MPV 10.6 H 10.3 Sodium 137 Potassium 3.5 Chloride 106 Carbon Dioxide 25 Anion Gap 6 BUN 13 Creatinine 0.88 Estim Creat Clear Calc 89 Estimated GFR > 60 Glucose 95 Calcium 8.3 L Total Bilirubin 0.2 AST 28 ALT 34 Alkaline Phosphatase 73 Total Protein 6.0 L Albumin 3.3 L Imaging Radiologist's impression: ITS Impressions Head CT 08/20/24 20:31 Impression: No acute intracranial hemorrhage or suspicious mass effect. Inflammatory sinus disease Abdomen/Pelvis CTA 08/20/24 20:35 IMPRESSION: Hepatomegaly. Otherwise, unremarkable CTA examination of the abdomen and pelvis, as detailed above. Discharge Plan Discharge Attending physician on discharge: Vadim Marr Consulting providers: Lupillo Petty Riaz Discharging Clinician: Vadim Marr Anticipated Discharge Date/Time: 08/23/24 13:56 Patient Disposition: Home Activity: as tolerated Diet: regular and other - see discharge instructions Discharge Instructions: Please do not take any spicy food Advised to follow-up with the cement tester assistant for colonoscopy Advised to follow-up with the PCP for anemia Advised to follow-up with neurology for seizures Order CBC, be performed within a week and follow the results with PCP. Please do not take NSAIDs for pain For some reason if anemia is not resolved ,advised to see Electronic Specialist. EGD shows Ulcerative gastritis without Bleeding Check blood pressure 1 to 2 times a day. Record and bring into your doctor for review. Call your doctor if your blood pressure is greater than 180/110 or less than 90/45. Walk with cane or other assist device. Take precautions to avoid falls. Rise slowly from a lying or sitting position. Pause before standing or walking. Contact your doctor or call 911 and come to the Emergency Room if you have any type of trauma, lightheadedness with standing or other worrisome symptoms. Avoid NSAIDs (ibuprofen, naproxen, Aleve). Tylenol is safe to take. Follow-up with your primary care provider in 1-2 weeks. Please call for appointment. Thank you for using [facility] for your health care needs. Patient Instructions: Antibiotic Form Patient Language: [place] Stand Alone Forms: General Discharge Information Follow-up/Referrals: Pacheco Bone MD [Physician] - Carmelo Alvarez MD [Physician] - Lupillo Petty MD [Physician] - Discharge Medications: Continued epinephrine 0.3 mg/0.3 mL auto-injector 0.3 ml IM ONCE Discontinued naproxen 500 mg tablet 500 mg PO Q12H No Action pantoprazole 40 mg tablet,delayed release (DR/EC) 40 mg PO Q12HR Qty: 60 3RF Other Ambulatory Orders: Complete Blood Count no Diff (Routine) Timeframe: 1 Week Location: Determined by Patient Ordered By: Vadim Marr Date of admission: 08/21/24 10:29 Primary Care Provider: Annia Griffin Admitting Provider: David Villeda Attending physician on admission: David Villeda Condition: Stable
--- NOTE | 2024-08-23 14:55 | WPDGIPROGNO ---
Progress Note: A&P Assessment and Plan (1) Gastric ulcer: Code(s): K25.9 - Gastric ulcer, unspecified as acute or chronic, without hemorrhage or perforation Status: Acute Assessment and Plan: egd showed non bleeding ulcers ppi twice daily now no more nsaid's h/h low but stable and no more melena he can go home and then follow-up office (2) Acute GI bleeding: Code(s): K92.2 - Gastrointestinal hemorrhage, unspecified Status: Acute Assessment and Plan: diet as tolerated no more bleeding stop alcohol and avoid nsaid's (3) Melena: Code(s): K92.1 - Melena Status: Acute (4) NSAID induced gastritis: Code(s): K29.60 - Other gastritis without bleeding; T39.395A - Adverse effect of other nonsteroidal anti-inflammatory drugs [NSAID], initial encounter Status: Acute (5) Syncopal seizure: Code(s): R55 - Syncope and collapse; R56.9 - Unspecified convulsions Status: Acute Assessment and Plan: on [facility] by primary (6) Alcohol withdrawal seizure: Qualifiers: Complication of substance-induced condition: uncomplicated Qualified Code(s): F10.930 - Alcohol use, unspecified with withdrawal, uncomplicated; R56.9 - Unspecified convulsions Code(s): F10.939 - Alcohol use, unspecified with withdrawal, unspecified; R56.9 - Unspecified convulsions Status: Acute (7) Anemia: Code(s): D64.9 - Anemia, unspecified Status: Acute Subjective Date/time seen: 08/23/24 14:55 Interval history: no more gib, good appetite Review of Systems Review of Systems: All systems reviewed & are unremarkable except as noted in HPI and below Exam Const: General: comfortable and no acute distress HENMT: Face/Nose/Sinus: Normal nares present Eyes: General: appearance normal, both eyes and all related structures Neck: Neck: no JVD Resp: Auscultation: clear to auscultation bilaterally Cardio: Rate: regular rate Rhythm: regular rhythm GI: Inspection: non-distended GI Palp: Yes Soft to palpation Skin: General skin exam: normal color Neuro: General: gait normal Speech: normal speech Extrem: General: normal to inspection Psych: Mental Status: mental status grossly normal Objective Data Vital Signs Vital Signs: Vital Signs - 24 hr 04/09/25 15:59 08/22/24 16:00 08/22/24 20:00 Temperature 98.5 F Pulse Rate 93 99 Respiratory Rate 18 Blood Pressure 129/79 Pulse Oximetry 100 Oxygen Delivery Room Air 08/22/24 20:00 08/22/24 23:45 08/23/24 00:00 Temperature 98.2 F Pulse Rate 102 H 89 103 H Respiratory Rate 16 Blood Pressure 133/81 Pulse Oximetry 100 Oxygen Delivery 08/23/24 04:00 08/23/24 07:44 08/23/24 08:00 Temperature 98.0 F Pulse Rate 89 93 Respiratory Rate 18 Blood Pressure 130/80 Pulse Oximetry 100 100 Oxygen Delivery Room Air 08/23/24 08:00 08/23/24 12:00 Temperature Pulse Rate 87 92 Respiratory Rate Blood Pressure Pulse Oximetry Oxygen Delivery Intake/Output Intake/Output: Intake & Output 08/20/24 08/21/24 08/22/24 08/23/24 23:59 23:59 23:59 23:59 Intake Total 1999 2090 3480 600 Output Total 400 200 Balance 1600 1890 3480 600 Meds/Results Medications: Active Medications Generic Name Dose Route Start Last Admin Trade Name Freq PRN Reason Stop Dose Admin Acetaminophen 500 mg 08/21/24 04:52 08/21/24 20:34 Acetaminophen 500 Mg Tablet PO 500 mg Q4H PRN Administration Mild Pain (1-3) or Fever Ondansetron HCl 4 mg 08/20/24 21:08 08/21/24 11:26 Ondansetron Inj 4 Mg/2 Ml Vial IV PUSH 4 mg Q4H PRN Administration Nausea Pantoprazole Sodium 40 mg 08/21/24 21:00 08/23/24 07:43 Pantoprazole 40 Mg Tablet PO 40 mg Q12HR MELO Administration Radiology Results: ITS Impressions Head CT 08/20/24 20:31 Impression: No acute intracranial hemorrhage or suspicious mass effect. Inflammatory sinus disease Abdomen/Pelvis CTA 08/20/24 20:35 IMPRESSION: Hepatomegaly. Otherwise, unremarkable CTA examination of the abdomen and pelvis, as detailed above. Labs Labs: Laboratory Results - last 24 hr 08/22/24 08/23/24 08/23/24 16:37 03:41 03:42 WBC 6.9 7.3 RBC 2.41 L 2.37 L Hgb 7.6 L 7.8 L Hct 22.7 L 22.7 L MCV 94.2 95.8 MCH 31.5 32.9 MCHC 33.5 34.4 RDW 12.8 13.0 Plt Count 190 212 MPV 10.3 10.6 H Sodium 137 Potassium 3.5 Chloride 106 Carbon Dioxide 25 Anion Gap 6 BUN 13 Creatinine 0.88 Estim Creat Clear Calc 89 Estimated GFR > 60 Glucose 95 Calcium 8.3 L Total Bilirubin 0.2 AST 28 ALT 34 Alkaline Phosphatase 73 Total Protein 6.0 L Albumin 3.3 L
== END 2024-08-23 15:16 | disposition home or self-care (01) | DRG 378 ==
LOC: ANHED 21:08 → ANHIMU 21:27
PROVIDERS: Internal Medicine Gastroenterology; Admitting Provider Internal Medicine; Emergency Provider Preventive Medicine Aerospace Medicine; Visit Provider General Practice
PROC: 0DJ08ZZ Inspection of Upper Intestinal Tract, Via Natural or Artificial Opening Endoscopic (ICD-10-PCS; principal; 2024-08-21 15:30)
DX: K25.4 Chronic or unspecified gastric ulcer with hemorrhage (principal); E87.20 Acidosis, unspecified; K29.61 Other gastritis with bleeding; K29.81 Duodenitis with bleeding; K22.2 Esophageal obstruction; D64.9 Anemia, unspecified; R56.9 Unspecified convulsions; R55 Syncope and collapse; T39.395A Adverse effect of other nonsteroidal anti-inflammatory drugs [NSAID], initial encounter; F10.90 Alcohol use, unspecified, uncomplicated
CPT/HCPCS: 36415; 70450; 74174; 80048; 80053; 82077; 82948; 83605; 83735; 85025; 85027; 85610; 85730; 86850; 86900; 86901; 87081; 88305; 93005; 95816; 96361; 96374; 96375; 96376; 99285; A9270; G0378; J1171; J1953; J2003; J2405; J2470; J2560; J2704; J7030; J7120; Q9967

== ENCOUNTER 2025-02-11 00:55 | Day surgery (SDC) | payer OTHER, SELFPAY ==
--- OUTSIDE RECORDS SUMMARY | 2024-08-21 10:00 | XMS_ITS ---
Author Organization [facility] Address [address] [place] [address] [address] [place] [address] Care Team Providers Care Agent Broker Name Role Phone Shyam Schmitz Unavailable [phone] REASON FOR VISIT LBP - dr kaur L3 LES, per PRAVIN- pt is in hospital Encounters Encounter Location Date Provider Diagnosis [facility] [address] [place] [address] [address] [place] [address] 08/21/2024 Shyam Schmitz Plan Of Treatment No Information Progress Notes * Lui LATHAM LDOB: 5 (39 yo M)Acc No.[id number]:08/21/2024 Patient: Lui PARMAR Provider: Ricardo Schmitz MD :1985 A ge:38 Y S ex:Male Date:08/21/2024 Address: [address] [place] [address] Subjective: * Chief Complaints: * 1 . LBP - dr kaur L3 LES, per PRAVIN- pt is in hospital. * Medical History: Objective: * Vitals: Assessment: Plan: * Treatment: Forms: * Billing Information: * Visit Code: * Procedure Codes: * Electronic signature of Ana Schmitz MD on 02/11/2025 at 12:58 AM CDT Sign off status: Pending * Provider: Ricardo Schmitz MD Date: 0 08/21/2024 Generated for Printi ng/Faxing/eTransmitting on: 0 02/11/2025 12:58 AM CDT
--- OUTSIDE RECORDS SUMMARY | 2024-08-21 10:15 | XMS_ITS ---
Author Organization [facility] Address [address] [facility] [address] [place] [address] Care Team Providers Care Head Irrigator Name Role Phone Chayito Schmitz Unavailable [phone] REASON FOR VISIT LBP - dr kaur L3 LES Encounters Encounter Location Date Provider Diagnosis [facility] [address] [facility] [address] [place] [address] 08/21/2024 Chayito Schmitz Plan Of Treatment No Information Progress Notes * Lui LATHAM LDOB: 5 (39 yo M)Acc No.[id number]:08/21/2024 Patient: Lui PARMAR Provider: Pardeep Schmitz MD :1985 A ge:38 Y S ex:Male Date:08/21/2024 [address] [place] [address] Subjective: * Chief Complaints: * 1 . LBP - dr kaur L3 LES. * Medical History: Objective: * Vitals: Assessment: Plan: * Treatment: Forms: * Billing Information: * Visit Code: * Procedure Codes: * Electronic signature of Claudia Schmitz MD on 02/11/2025 at 12:57 AM CDT Sign off status: Pending * Provider: Pardeep Schmitz MD Date: 08/21/2024 Generated for [place] ng/Faxing/eTransmitting on: 0 02/11/2025 12:57 AM CDT
[2025-01-25 10:35] VITALS: BMI 25.9
--- OUTSIDE RECORDS SUMMARY | 2025-02-11 00:58 | XMS_ITS | Encounter Summary ---
Author Organization [facility] Address 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
--- OUTSIDE RECORDS SUMMARY | 2025-02-11 00:58 | XMS_ITS | Encounter Summary ---
Author Organization [facility] Address [address] [place] [address] Care Team Providers Care Cleaning Validation Consultant Name Role Phone Unavailable Primary Care Provider Unavailabl e Encounter Details Date Type Department Care Team (Late st Contact Info) Description 01/22/2000 Outpatient Historical [facility] [address] [place] [address] Curly Lind MD [address] [facility] [address] [place] [address] Social History Tobacco Use Types Packs/Day Years Used Date Smoking Tobacco: Never Assessed Sex and Gender Information Value Date Recorded Sex Assigned at Not on file 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
--- OUTSIDE RECORDS SUMMARY | 2025-02-11 00:58 | XMS_ITS | Clinical Summary ---
Author Organization [facility] Address [address] [place] [address] Care Team Providers Care Baccarat Dealer Name Role Phone Unavailable Primary Care Provider Unavailabl e Source Comments [facility],non-owned Affiliates and Associated Physician Practices is amultiple site organization consisting of ambulatory clinics and hospital sitesin [place], [place], [place] and [place]. This disclosure is being madepursuant to the Care Everywhere program and may not contain all information available regarding this patient. Last updated 18.[facility] Allergies No known active allergies Medications * Be aware that medications may not be up to date on this document. Alwaysverify current medications with the patient. No known medications Social History Tobacco Use Types Packs/Day Years Used Date Smoking Tobacco: Every Day Cigarettes 0.5 10 Alcohol Use Standard Drinks/Week Comments No 0 (1 standard drink = 0.6 oz pur e alcohol) Sex and Gender Information Value Date Recorded Sex Assigned at Not on file Legal Sex Male 6:07 AM PARK AIDE Gender Identity Not on file Sexual Orientation Not on file Last Filed Vital Signs Vital Sign Reading Time Taken Comments Blood Pressure 141/68 05/05/2010 8:00 PM PARK AIDE Pulse 97 05/05/2010 8:00 PM PARK AIDE Temperature 36.4 C (97.6 F) 05/05/2010 6:23 PM PARK AIDE Respiratory Rate 16 05/05/2010 8:00 PM PARK AIDE Oxygen Saturation 100% 05/05/2010 8:00 PM PARK AIDE Inhaled Oxygen Concentration - - Weight 63 kg (139 lb) 05/05/2010 6:23 PM PARK AIDE Height 170.2 cm (5' 7) 05/05/2010 6:23 PM PARK AIDE Body Mass Index 21.77 05/05/2010 6:23 PM PARK AIDE Plan of Treatment Health Maintenance Due Date Last Done Comments LIPID TESTING 1985 HIV SCREENING 09/26/1999 HEPATITIS C SCREENING 09/21/2002 DTAP/TDAP/TD VACCINES (1 - Tdap) 09/26/2003 HEPATITIS B VACCINE (1 of 3 - 19+ 3-dose series) 09/26/2003 PNEUMOCOCCAL VACCINE (1 of 2 - PCV) 09/26/2003 HPV VACCINE (1 - 3-dose SCDM series) 09/26/2011 DEPRESSION SCREENING 05/16/2024 COVID-19 VACCINE (1 - 2023-2 5 season) 2025 INFLUENZA VACCINE (#1) 2025 ZOSTER VACCINE (1 of 2) 2034 HIB VACCINE Aged Out No longer eligi ble based on patient's age to complete this topic MENINGOCOCCAL (Group B) VACC INE SHARED DECISION-MAKING Aged Out No longer eligibl e based on patient's age to complete this topic MENINGOCOCCAL GROUPS A/C/Y/W VACCINE Aged Out No longer eligible b ased on patient's age to complete this topic Insurance SELF PAY NO INSURANCE Member Subscriber Plan / Payer (Ef fective for All Dates) Name:Long Latham Member ID:Not on file Relation to Subscriber:Not on file Name:LONG LATHAM Subscriber ID:Not on file (Home) Address: [address] [place], [place] [address] [address] Payer ID:Not on file Group ID:Not on file Type:Self Pay Address: [facility]
--- OUTSIDE RECORDS SUMMARY | 2025-02-11 00:58 | XMS_ITS | Patient Health Record ---
Author Organization [facility] Address [address] [place] [address] Care Team Providers Care Corporate Development Analyst Name Role Phone Chayito Schmitz Unavailable [phone] Shyam Schmitz Unavailable [phone] Reason For Referral No Information Plan Of Treatment No Information Insurance Providers Payer Name Payer Address Payer Phone Subscriber Number Group Number Insured Name Patient Relationship to Insured Coverage Start Date Coverage End Date [employer] [address] [address] [place] [address] [id number] Lui Latham Self - patient is the insured
--- OUTSIDE RECORDS SUMMARY | 2025-02-11 00:58 | XMS_ITS | Data Portability ---
Author Organization [facility], Main Office Address [address] [place] [address] Assessment Encounter Date Assessment Date Assessment LastModified [...] referral - patient to schedule 2023 024 [email or web address] Not available 16:25:00 Procedures None recorded. Surgeries None recorded. Imaging XR, elbow 2023 024 [email or web address] [facility] [place], [address], [place], [address], 16:25:00 Medication Orders Mobic 15 mg tablet 2023 024 [email or web address] [id number], [address], [place], [place], [id number], 16:25:00 Patient TargetsNo targets recorded. Patient InstructionsNo instructions recorded. Reason for Referral Physical Therapist Referral for Pain of right elbow joint patient to schedule Referring Physician: Elinor Medrano, Orthopedic Surgery, Encounter Date: 01/25/2024 Results Created Date Observation Date Name Description Value Unit Range Abnormal Flag Note LastModifiedBy Organization Detail LastModifiedTime 01/25/20 24 XR, elbow No observ ation record ed. [email or web address] [facility] [place] [address], [place], [address], 01/25/2024 16:14:04 Result Notes None recorded. Problems Name Problem SNOMED Code Status Onset Date Resolution Date Notes Provider Name and Address Organization Details Recorded Time Pain of right elbow joint [id number] Active 2023 [facility] 15:08:24 Problem Notes None recorded. Procedures Surgical History Date Name Laterality Status Provider Name and Address Organization Details Recorded Time open reduction of fracture of femur completed Phyllis Christopher CNA [facility] 01/25/2024 15:07:55 Imaging Results None recorded. Procedure Notes None recorded. Medical Equipment None [...] Updated DateTime 01/25/2024 170.18 cm 25.1 kg/m2 29256.78 g Phyllis Christopher CNA [facility] 01/25/2024 15:04:56 Social History Question Answer Notes LastModified by Organizat ion Details LastModified Time Tobacco Smoking Status Current Every Day Smoker Phyllis Christopher CNA [facility] 01/25/2024 15:07:34 How Much Tobacco Do You Smoke? 1 PPW Information not available 01/25/2024 How Many Years Have You Smoked Tobacco? 20 Information not available 01/25/2024 Sex: Unknown Functional Status Question Answer Note LastModified by Organization D etails LastModified Time What is your level of alcohol consumption? Moderate Information not available 01/25/2024 Mental Status None recorded. Family History Nothing Reported. Medical History No medical history recorded. Past Encounters Encounter ID Performer Location Encounter Start Date Encounter Closed Date Diagnosis/Indication Diagnosis SNOMED-CT Code Diagnosis ICD10 Code Diagnosis IMO Codes Diagnosis Note [id number] Chuck Casarez MD [facility] [place] [address] [place] [address] 01/25/2024 14:44:54 01/25/2024 15:44:20 Pain of right elbow joint 5933941405 [id number] M25.521 Health Concerns Section Related Observation LastModified by Organization Detai ls LastModified Time None Recorded Concern Status LastModified by Organization Details LastModified Time None Recorded Advance Directives Directive None Recorded Payers Insurance Date Sequence Insurance Name Policy Number Policy Martínez Covered Member ID Martínez Member ID Guarantor Name 01/25/2024 1 [facility] [id number] Lui Latham [id number] Lui Latham
--- OUTSIDE RECORDS SUMMARY | 2025-02-11 00:58 | XMS_ITS | Clinical Summary ---
Author Organization [facility] Address [address] [place] [address] Care Team Providers Care Education Faculty Member Name Role Phone Unavailable Primary Care Provider Unavailabl e Allergies Active Allergy Reactions Criticality Noted Date Comments Bee Venom Protein (Honey Bee) Anaphylaxis High 08/15 Medications EPINEPHrine (EPIPEN) 0.3 mg/0.3 mL Auto-Injector Inject 0.3 mg by intramuscular injection 1 time daily as needed for Anaphylaxis. Active Encounters Date Type Department Care Team Description 01/29/2025 External Device Data [facility] ABSTRACTION Provider, Abstract 01/29/2025 External Device Data [facility] ABSTRACTION Provider, Abstract 01/15/2025 External Device Data [facility] ABSTRACTION Provider, Abstract 01/01/2025 External Device Data [facility]CTION Provider, Abstract 01/01/2025 External Device Data [facility]CTION Provider, Abstract 12/19/2024 External Device Data [facility] ABSTRACTION Provider, Abstract 12/18/2024 External Device Data [facility] ABSTRACTION Provider, Abstract 11/13/2024 External Device Data [facility] ABSTRACTION Provider, Abstract 11/13/2024 External Device Data [facility] ABSTRACTION Provider, Abstract from Last 3 Months Social History Tobacco [...] on file 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
[2025-02-11 11:15] VITALS: BP 133/99; PULSE 84; RESP 18; TEMP 36.7; O2SAT 100
[2025-02-11] MEDS: LACTATED RINGERS 1,000 ML 150 ML IV CONT (11:22)
--- NOTE | 2025-02-11 11:23 | WPDANESEPPF ---
Anes - Initial Pre Proc Eval Procedure: Operation Date: 02/11/25 14:30 Proposed Procedures p EGD & Diagnostic Colonoscopy - Lupillo Petty MD Date/Time: 02/11/25 11:23 Surgeon: Lupillo Petty MD Pre Op Diagnosis: Iron deficiency, Gastrointestinal hemorrhage, unsp Patient Data Age: 39 Gender: M Height: 1.7 m Weight: 73.1 kg Last Vital Signs Temp 98.0 F 02/11/25 11:15 Pulse 84 02/11/25 11:15 Resp 18 02/11/25 11:15 BP 133/99 H 02/11/25 11:15 Pulse Ox 100 02/11/25 11:15 O2 Del Method Room Air 02/11/25 11:15 Allergies Allergy/AdvReac Type Severity Reaction Status Date / Time bee venom protein (honey bee) AdvReac Anaphylaxis Verified 02/11/25 11:14 wasp AdvReac Anaphylaxis Uncoded 11/05/24 15:33 Home Medications ?Medication ?Instructions ?Recorded ?Confirmed ?Type epinephrine 0.3 mg/0.3 mL 0.3 ml IM ONCE 09/09/23 01/25/25 History injection, auto-injector Patient hx anesthesia problems: none Family hx anesthesia problems: none Results Review: All pre-operative results and documents have been reviewed as part of the pre-operative evaluation. [facility] Past Medical History Medical History Anemia Gastric ulcer NSAID induced gastritis Coffee ground emesis Melena Allergy to bee sting History of esophageal stricture Surgical History Surgical History No significant past surgical history Family History Family History Mother High cholesterol Social History Social History Smoking status: Current every day smoker Tobacco type: cigarettes Additional smoking assessment comments: socially 1 pack per week Alcohol intake: current Drinks per week: 20 Substance use: current Substance use type: marijuana Do You Feel Safe in your Home?: Yes Lack of Transportation: No Lack of Food: Never True Current Housing: I Have Housing Concerned About Future Housing: No Difficulty Paying Gas/Electric Bills: No Difficulty Paying for Meds: No Currently Unemployed: No Education: Trade/Vocational Certificate Difficulty w/ Childcare or Family Care: No Spiritual care concerns: No Anes - Eval Final PreProcedure Day of Procedure 02/11/25 11:23 Patient weight: normal Lungs: normal air movement Airway: Mallampati scale class II Neurological: alert and oriented Last oral intake: >/= 8 hours ASA classification: II Emergent: no Anesthetic plan: proceed Anesthesia type and monitoring: general GIVS and standard monitoring Results Review: All pre-operative results and documents have been reviewed as part of the pre-operative evaluation. Smoker, 1 pack/week. Informed Consent: The patient's anesthetic plan and its attendant risks and benefits were discussed with the patient/family/POA. Questions were solicited and answers provided to the satisfaction of the patient/family/POA.
--- NOTE | 2025-02-11 11:55 | PM.HPGS ---
History of Present Illness History of Present Illness Consent: Risks, benefits, and alternatives have been discussed and questions answered. Patient agrees to proceed with procedure. Chief complaint: Iron deficiency, Gastrointestinal hemorrhage, unsp Narrative: Lui Latham is a 39 year old male with rosa, EGD 08/2024 for melena and had gastric ulcers, never had colonoscopy, also h/o dysphagia Review of Systems Review of Systems: All systems reviewed & are unremarkable except as noted in HPI and below PMFSH Past Medical History Medical History Anemia Gastric ulcer NSAID induced gastritis Coffee ground emesis Melena Allergy to bee sting History of esophageal stricture Surgical History Surgical History No significant past surgical history Family History Family History Mother High cholesterol Social History Social History Smoking status: Current every day smoker Tobacco type: cigarettes Additional smoking assessment comments: socially 1 pack per week Alcohol intake: current Drinks per week: 20 Substance use: current Substance use type: marijuana Do You Feel Safe in your Home?: Yes Lack of Transportation: No Lack of Food: Never True Current Housing: I Have Housing Concerned About Future Housing: No Difficulty Paying Gas/Electric Bills: No Difficulty Paying for Meds: No Currently Unemployed: No Education: Trade/Vocational Certificate Difficulty w/ Childcare or Family Care: No Spiritual care concerns: No Meds Home Medications and Allergies Home Medications ?Medication ?Instructions ?Recorded ?Confirmed ?Type epinephrine 0.3 mg/0.3 mL 0.3 ml IM ONCE 09/09/23 01/25/25 History injection, auto-injector Allergies Allergy/AdvReac Type Severity Reaction Status Date / Time bee venom protein (honey bee) AdvReac Anaphylaxis Verified 02/11/25 11:14 wasp AdvReac Anaphylaxis Uncoded 11/05/24 15:33 Vital Signs Vital Signs - 24 hr 02/11/25 11:15 Temperature 98.0 F Pulse Rate 84 Respiratory Rate 18 Blood Pressure 133/99 H Pulse Oximetry 100 Oxygen Delivery Room Air Exam Const: General: comfortable and no acute distress HENMT: Face/Nose/Sinus: Normal nares present Eyes: General: appearance normal, both eyes and all related structures Resp: Auscultation: clear to auscultation bilaterally Cardio: Rate: regular rate Rhythm: regular rhythm GI: Inspection: non-distended GI Palp: Yes Soft to palpation Skin: General skin exam: normal color Neuro: Speech: normal speech Extrem: General: normal to inspection Psych: Mental Status: mental status grossly normal Assessment and Plan Assessment and plan (1) Gastric ulcer: Code(s): K25.9 - Gastric ulcer, unspecified as acute or chronic, without hemorrhage or perforation Status: Acute Assessment and Plan: egd (2) Dysphagia: Code(s): R13.10 - Dysphagia, unspecified Status: Acute (3) Iron deficiency: Code(s): E61.1 - Iron deficiency Status: Acute Assessment and Plan: colonoscopy
--- NOTE | 2025-02-11 12:00 | S_PTH ---
PATIENT: Lui Latham LOC: [facility]#:[id number] AGE/SX: 39/M ROOM: RE02/11/[address]: Lupillo Petty MD : 1985 BED: DIS: 02/11/2025 SPEC #: [id number] RECD: 02/11/25 13:20 STATUS: RANJITH RELiat #: [id number] ELI: 02/11/25 12:[address]: Lupillo Petty DEPT: [facility] Surgical RECD BY: Tia Steiner Tissues: A - Esophageal Biopsy B - Small Bowel Bx Procedures: Hematoxylin and Eosin Stain Gross and Microscopic Level 4
--- NOTE | 2025-02-11 12:00 | SUR.OPER ---
EGD start 1152 end 1155, Colonoscopy start 1200
[2025-02-11 12:08] VITALS: BP 110/83; PULSE 84; RESP 20; O2SAT 98
[2025-02-11 12:18] VITALS: BP 114/86; PULSE 87; RESP 19; O2SAT 98
== END 2025-02-11 12:39 | disposition home or self-care (01) ==
PROVIDERS: Referring Provider Nurse Practitioner; Visit Provider Internal Medicine Gastroenterology
PROC: 0DJ08ZZ Inspection of Upper Intestinal Tract, Via Natural or Artificial Opening Endoscopic (ICD-10-PCS; CPT 45378; principal; 2025-02-11 14:30)
DX: K20.0 Eosinophilic esophagitis (principal); E61.1 Iron deficiency; K57.30 Diverticulosis of large intestine without perforation or abscess without bleeding; D64.9 Anemia, unspecified; F17.210 Nicotine dependence, cigarettes, uncomplicated; F12.90 Cannabis use, unspecified, uncomplicated; Z87.11 Personal history of peptic ulcer disease
CPT/HCPCS: 43239; 45378; 88305; J2704; J7120